=== PATIENT | male | born 1950 | race Caucasian/White ===

== ENCOUNTER 2023-06-30 11:48 | Outpatient (CLI) | payer MEDICARE, SELFPAY ==
[2023-06-30 13:10] LABS: Urine Cotinine NEGATIVE
[2023-06-30 13:11] LABS: Albumin Level 4.4 g/dL (3.5-5.1); Anion Gap 6 mmol/L (8-16); Basophils Percent Auto 0.2 % (0.2-1.2); Blood Urea Nitrogen 27 mg/dL (9-20); Calcium 9.2 mg/dL (8.4-10.2); Carbon Dioxide 31 mmol/L (22-30); Chloride 103 mmol/L (98-107); Eosinophils Absolute Auto 0.1 K/mm3 (0-0.3); Eosinophils Percent Auto 2.9 % (0-4.4); Estimated Glomerular Filt Rate > 60; Glucose 80 mg/dL (65-110); Hematocrit 46.4 % (42.0-52.0); Hemoglobin 14.9 g/dL (14.0-18.0); Immature Granulocyte Absolute 0.01 K/mm3 (0.00-0.031); Immature Granulocyte Percent A 0.2 % (0-0.5); Lymphocytes Absolute Auto 1.28 K/mm3 (0.9-3.2); Lymphocytes Percent Auto 28.9 % (18.3-44.2); Mean Corpuscular HGB Conc 32.1 g/dl (32-36); Mean Corpuscular Hemoglobin 30.6 pg (26-34); Mean Corpuscular Volume 95.3 fl (80-100); Mean Platelet Volume 9.9 fl (7.4-10.4); Monocytes Absolute Auto 0.4 K/mm3 (0.1-0.6); Monocytes Percent Auto 8.1 % (2.6-8.5); Neutrophils Absolute Auto 2.6 K/mm3 (1.3-6.7); Neutrophils Percent Auto 59.7 % (45.5-73.1); Platelet Count Result 208 k/mm3 (150-375); Potassium 4.6 mmol/L (3.4-5.0); Red Blood Count 4.87 M/mm3 (4.6-6.20); Red Cell Distribution Width 13.7 % (11.5-14.5); Sodium 140 mmol/L (137-145); White Blood Count 4.4 K/mm3 (4.5-10.0)
[2023-06-30 13:12] LABS: Hemoglobin A1C 5.3 % (<5.7)
== END 2023-06-30 11:49 | disposition home or self-care (01) ==
LOC: ANHSURGERY 12:00
PROVIDERS: PCP Family Medicine; Visit Provider Orthopaedic Surgery
DX: M16.11 Unilateral primary osteoarthritis, right hip (principal); Z01.818 Encounter for other preprocedural examination
CPT/HCPCS: 80048; 80307; 82040; 83036; 85025; 87081

== ENCOUNTER 2023-07-14 01:42 | Day surgery (SDC) | payer MEDICARE, SELFPAY ==
[2023-06-30 12:21] VITALS: BMI 28.3
--- NOTE | 2023-06-30 12:24 | PC.NURSE ---
Report to the Outpatient Waiting Room, entrance under the green pavilion located off [facility], at time _0600 on date _07/14/23 . Planned Procedure Time: _0730 . Time changes happen often and if your time is changed the preop area will call you the afternoon before. - You and your visitor will be asked to self-screen and do not enter if you have any COVID symptoms. - A mask is optional within the hospital at this time. Patients may have clear liquids (water, carbonated beverages, clear teas, apple juice) until 3 hours prior to surgery(4:30 AM ) with a maximum of 20 ounces. - No food from midnight until time of surgery - Infants may have breast milk until 4 hours before surgery, infant formula 6 hours prior to surgery. - Children will be allowed to drink immediately following surgery. If applicable, please bring a bottle or sippy cup to assist with drinking. Juice, water, soda, and popsicles are readily available. For infants on formula, please bring formula the day of surgery. Pacifiers are allowed. Take the following medications with a SIP of water the morning of surgery: ___EYE DROP DO NOT STOP ANY OF YOUR OTHER PRESCRIPTION MEDICATIONS PRIOR TO SURGERY ?EXCEPT THE FOLLOWING Medications to discontinue per physician ____HOLD ASPIRIN AND IBUPROFEN 7 DAYS PRE OP PT STATES PER DR SINGH LAST DOSE 07/06/23 MAY TAKE TYLENOL IF NEEDED FOR PAIN HOLD ALL VITAMINS AND SUPPLEMENTS 3 DAYS PRE OP .LAST DOSE 07/10/23 Please no make-up, nail moldovan, hairspray, perfume, deodorant, or body powder the day of surgery. No jewelry (including any body piercings) or valuables the day of surgery, leave them at home. Please take a shower or bath the night before, or the morning of, surgery with an antibacterial soap. Wear comfortable, loose fitting clothing. Children are encouraged to wear pajamas. - Jewelry must be removed prior to entering the operating room. Rings and piercings that are not removed may be cut off. - The hospital will not accept responsibility for valuables. - Please leave all valuables, including medications, at home the day of surgery. If you are going home after surgery, a licensed professional driver must drive you home. - NO public transportation without another adult if you receive anesthesia. - We recommend that an adult stay with you for 24 hours following discharge. - We also recommend that you do not drive, make important decision, drink alcoholic beverages, or take any drugs that were not prescribed by your health care provider for at least 24 hours after your discharge time Follow any additional instructions given to you from your surgeon. If you or anyone in your household have experienced Covid symptoms in the past week, please notify your surgeon or the nurse liaison at the phone number below for possible testing. VERBAL AND WRITTEN instructions given to __PATIENT and asked if any additional questions and then verbalized understanding. Patient advised to call surgeon office or pre surgery nurse liaison [phone] if any additional questions.
[2023-06-30 12:45] VITALS: BP 156/80; PULSE 55; RESP 18; TEMP 36.7; O2SAT 98
--- NOTE | 2023-07-11 11:32 | PM.IMHP ---
H&P: HPI History of Present Illness Date/Time: 07/11/23 11:32 Chief Complaint: Right hip DJD right Narrative: 72-year-old male patient of Dr. Delcid who presents today for a right anterior total hip arthroplasty. Patient has been having pain in both of his hips for almost a year. Right is worse than left with regard to the symptoms at this point. He has advanced osteoarthritis of the right hip and severe osteoarthritis in the left. He has been taking tijb-kif-fubwbfc anti-inflammatories for the hip as well as he has colon to rule physical therapy. He has not had significant improvement of his symptoms. He has pain on a daily basis particularly in the anterior lateral aspect of the hip. Pain is limiting his activities. At this point he feels he is ready to proceed with total hip arthroplasty rather than continue nonsurgical treatment. Review of Systems Review of Systems: All systems reviewed & are unremarkable except as noted in HPI and below PMFSH Social History Social History Smoking status: Never smoker Additional smoking assessment comments: DENIES ANY FORM OF TOBACCO USE Alcohol intake: current Drinks per week: 5 Living arrangements: with family Spiritual care concerns: No Meds Home Medications and Allergies Home Medications Medication Instructions Recorded Confirmed Type aspirin 81 mg tablet,delayed 81 mg PO DAILY 06/30/23 06/30/23 History release (Adult Low Dose Aspirin) brimonidine 0.2 %-timolol 0.5 % 1 drp EACH EYE QAM 06/30/23 06/30/23 History eye drops (Combigan) glucosamine sulf dipot 1 cap PO DAILY 06/30/23 06/30/23 History chlr,msm,chond 550 mg-C 30 mg-kinjal 1 mg capsule (Glucosamine Chondroitin) hydrochlorothiazide 25 mg tablet 25 mg PO DAILY 06/30/23 06/30/23 History ibuprofen 400 mg tablet 400 mg PO Q6H PRN Pain 06/30/23 06/30/23 History lisinopril 40 mg tablet 40 mg PO DAILY 06/30/23 06/30/23 History fesxilxm-bcskzzyg-srgja acid 400 1 tablet PO DAILY 06/30/23 06/30/23 History mcg-vit K 20 mcg-lycop 300 mcg tablet rosuvastatin 10 mg tablet 10 mg PO DAILY 06/30/23 06/30/23 History Allergies Allergy/AdvReac Type Severity Reaction Status Date / Time Sulfa (Sulfonamide Allergy Unknown Unknown Unverified 06/30/23 12:08 Antibiotics) hydrocodone [From Vicodin] AdvReac Nausea and Verified 06/30/23 12:34 Vomiting Exam Narrative: 72-year-old male alert and pleasant. He is 6 ft tall and 206 lb. He walks with a very stiff gait. His right hip flexes to 85?, and he is fixed at approximately 25? of external rotation. Stinchfield maneuver causes him moderate pain in the lateral hip. His normal ducts and strength in the hip. 2+ posterior artery pulse is palpable. No edema in lower extremities. Skin around the hip and groin area are normal. Resp: Auscultation: clear to auscultation bilaterally Cardio: Rate: regular rate Rhythm: regular rhythm Assessment and Plan Assessment and plan (1) Hip arthritis: Code(s): M16.10 - Unilateral primary osteoarthritis, unspecified hip Status: Acute Plan 72-year-old male who has severe osteoarthritis of left hip with continued symptoms. At this point he would like to proceed with total elbow arthroplasty. Surgical procedure as well as the risks and complications were discussed in detail and all questions were answered and we will proceed. He will avoid his ibuprofen and any other aspirin products 1 week prior to surgery. His nasal swab was negative. Chem panel was all within normal limits creatinine is 0.80. Hemoglobin is 14.9 and platelets are 2008. He will see his primary care doctor for presurgical clearance he has seen cardiology Dr Bahena and has been evaluated and cleared without additional testing.
[2023-07-14] VITALS (16 sets, daily range): BP systolic 108–158; BP diastolic 52–86; PULSE 44–88; RESP 12–18; TEMP 35.6–36.7; O2SAT 96–100
--- NOTE | ~2023-07-14 | XR_ITS ---
EXAMINATION: XR surgery orthopedic DATE: 07/14/2023 10:38 INDICATION: Total right hip arthroplasty. TECHNIQUE: A single intraoperative fluoroscopic view of right hip was obtained. I was not present. Fl uoroscopy exposure time was 40 seconds. COMPARISON: Pelvis and right hip radiographs 07/14/23 FINDINGS: There is a total right hip arthroplasty in near-anatomic alignment. No fracture. IMPRESSION: 1. Total right hip arthroplasty in near-anatomic alignment. Reviewed, dictated and finalized at location A. OFFSET PRESS FEEDER
--- NOTE | ~2023-07-14 | XR_ITS ---
EXAMINATION: XR hip RT 1V w AP pelvis DATE: 07/14/2023 10:52 INDICATION: Total right hip arthroplasty. Postop. TECHNIQUE: An anteroposterior view of the pelvis and single view of right hip were obtained. COMPARISON: None. FINDINGS: There is a total right hip arthroplasty in near-anatomic alignment. No fracture. There is s evere left hip osteoarthritis. There is gas in the soft tissues around right hip, consistent with rec ent surgery. IMPRESSION: 1. Total right hip arthroplasty in near-anatomic alignment. 2. Severe left hip osteoarthritis. Reviewed, dictated and finalized at location A. 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
[2023-07-14] MEDS: LACTATED RINGERS 1,000 ML 30 ML IV CONT ×2 (06:30→10:56)
[2023-07-14] MEDS: ACETAMINOPHEN 500 MG TABLET 1000 MG PO (06:30)
[2023-07-14] MEDS: VANCOMYCIN 1,500 MG/NS 500 ML 1,500 MG/500 ML BAG 250 MG IVPB (06:30)
[2023-07-14] MEDS: TRANEXAMIC ACID 1,000MG/ISO100 1,000 MG/100 ML BAG 200 MG IVPB (07:00)
--- NOTE | 2023-07-14 07:15 | WPDHPUPDATE1 ---
History and Physical Update Update Date/Time: 07/14/23 07:15 History and Physical has been reviewed, including an updated exam of the patient. There are NO changes in the patient's condition. Risks, benefits, and alternatives have been discussed and questions answered. Patient agrees to proceed with procedure.
[2023-07-14] MEDS: ceFAZolin 2 GM/D5W 50 ML 2 GM/50 ML BAG IVPB (07:52)
[2023-07-14] MEDS: ceFAZolin SODIUM 1 GM VIAL 3 GM (09:08)
[2023-07-14] MEDS: ceFAZolin SODIUM 1 GM VIAL 2 GM IV PUSH (10:15)
[2023-07-14] MEDS: TRANEXAMIC ACID 1,000 MG/10 ML AMPUL 1000 MG IV PUSH (10:19)
--- NOTE | 2023-07-14 10:35 | W.PM.PROC2 ---
Procedure Note - Detailed Date of Procedure 07/14/23 Pre-op Diagnosis right hip oa Post-op Diagnosis Same Procedure Performed Direct anterior approach right total hip arthroplasty Surgeon Sebastian Larsen MD Correspondence Specialist Iveth Anesthesia General Description of Procedure Patient was brought to the operating room and general anesthesia was administered. He received 2 g of Ancef weight based vancomycin 1 g of TXA preoperatively. Lazaro catheter was placed. The feet were padded and boots applied he was transferred to the [facility] [place] table. SCDs applied to the calves and running. The right hip prepped draped usual fashion. A 10 cm longitudinal incision was made starting 3 cm lateral to the ASIS. Dissection was carried down to the fascia over the tensor fascia paulie which was longitudinally incised elevated this fascia over the anterior 1/2 the TFL muscle. Interval between TFL and rectus femoris developed. Crossing branches of ascending lateral femoral circumflex vessels were ligated with suture divided. Retractor was placed anteromedial to the capsule. The hip abducted internally rotated the gluteus minimus elevated off the lateral capsule. Inverted T capsulotomy was performed. Femoral neck osteotomy was made according to preoperative templating. Femoral head measured 53 mm in diameter and was mushroom shaped markedly hypertrophic with complete cartilage loss centrally. Acetabulum was exposed and was also severely arthritic. Residual posterior superior labrum and posterior labrum excised. We medialized with the 46 Reamer exposing the foveal fat pad which was excised we medialized the medial wall. Under fluoroscopic guidance we reamed up to a size 53 which gave contact at the equator both the anterior and posterior tran. We lightly reamed with the 54 Reamer and the 54 trial was snug. We impacted the 54 pinnacle cup which seated fully with a tight fit in the single screw placed in the ilium 36 inner diameter neutral liner fully seated and additional anterior and inferior osteophytes were removed this time. Superolateral osteophyte was also debrided. The femur was broached up to a size 8 and we trialed with the-2 high offset neck-2 head and this gave leg lengths that matched our preoperative plan and appropriate soft tissue tension and stability. We do not have to recess the conjoined tendon. We calcar planed and found that we could move the stem went up a size 9 which also had a little bit of play and went up to a size 10 which we countersunk 2 mm below the calcar planed level and this was a tight fit with no play. We trialed again with a -2 high offset and this gave the equivalent leg lengths and soft tissue tension. The size 10 high offset Actis stem was impacted and fully seated after we carefully prepared the calcar and stem came to rest properly on the calcar no cracks in the proximal femur were seen. We trialed again with a -2 which was appropriate the -2 stainless steel head was impacted on the clean and dried trunnion after thorough irrigation of the wound. The hip was reduced stability reconfirmed. Fluoroscopic final x-ray was obtained capsular flaps approximated superiorly with 2. Vicryl local anesthetic cocktail injected the soft tissues. The wound was dry. The fascia was closed with running 1. Vicryl drain the subcu skin closed with 2 subcutaneous Vicryl and glue. EBL was 600 cc and 250 cc of Cell Saver blood was given back to the purse patient at the end the procedure. He received 2 additional g Ancef 1 g of TXA. There were no complications. He was transferred postop recovery room stable condition. I felt the bone quality was such that we could allow and be weight-bearing as tolerated after surgery. Estimated Blood Loss 600 Drains Yes Pathology None sent Condition Stable Disposition PACU
--- NOTE | 2023-07-14 10:38 | SUR.OPER ---
cell saver: gave back 250 mls patient's own blood
[2023-07-14] MEDS: KETOROLAC 15 MG/ML VIAL (*BKC) IV PUSH ×2 (10:45→17:11)
--- NOTE | 2023-07-14 11:03 | PM.OP ---
Procedure Note - Brief Procedure Note - Brief Date of procedure: 07/14/23 right hip oa Procedure performed: Right anterior total hip arthroplasty Surgeon: BOYD Lacy Description of procedure: 72-year-old male who underwent right anterior total hip arthroplasty on 07/14. I was involved in the procedure including positioning the patient on the OR table and 1st assisting through the time of surgery. Total time spent was 3-1/2 hours
--- NOTE | 2023-07-14 12:38 | ADMGEN ---
This patient, Rob Spring, was admitted to [facility] Surg Room 329-01. Patient/family oriented to hospital policies and general routines including ID bracelet, bed and alarms, visiting hours, pain management, procedures, bathroom and other care routines, personal items, smoking policy, room service/diet, and visiting hours. Information on how to activate the Rapid Response Team has been discussed. Patient/Family are encouraged to report perceived risks to care and to ask questions if they do not understand what they are told or what they should do.
[2023-07-14] MEDS: ONDANSETRON INJ 4 MG/2 ML VIAL IV PUSH ×3 (12:54→21:06)
[2023-07-14] MEDS: oxyCODONE HCL (*CRX) 2.5 MG TAB IR PO ×3 (13:50→21:06)
[2023-07-14] MEDS: ACETAMINOPHEN 325 MG TABLET 650 MG PO ×3 (14:30→22:05)
[2023-07-14] MEDS: ceFAZolin 1 GM/NS 50 ML 1 GM/50 ML BAG IVPB (17:09)
[2023-07-14] MEDS: SENNA/DOCUSATE SODIUM TABLET 2 TAB PO (17:11)
--- NOTE | 2023-07-14 18:50 | PM.IMHP ---
H&P: HPI History of Present Illness Date/Time: 07/14/23 18:50 [facility] Social History Social History Smoking status: Never smoker Additional smoking assessment comments: DENIES ANY FORM OF TOBACCO USE Alcohol intake: never Drinks per week: 5 Substance use: never Substance use type: does not use Do You Feel Safe in your Home?: Yes Lack of Transportation: No Lack of Food: Never True Current Housing: I Have Housing Concerned About Future Housing: No Difficulty Paying Gas/Electric Bills: No Difficulty Paying for Meds: No Currently Unemployed: No Education: Don't Know Difficulty w/ Childcare or Family Care: No Living arrangements: with family Spiritual care concerns: No Meds Home Medications and Allergies Home Medications Medication Instructions Recorded Confirmed Type aspirin 81 mg tablet,delayed 81 mg PO DAILY 06/30/23 06/30/23 History release (Adult Low Dose Aspirin) brimonidine 0.2 %-timolol 0.5 % 1 drp EACH EYE QAM 06/30/23 06/30/23 History eye drops (Combigan) glucosamine sulf dipot 1 cap PO DAILY 06/30/23 06/30/23 History chlr,msm,chond 550 mg-C 30 mg-kinjal 1 mg capsule (Glucosamine Chondroitin) hydrochlorothiazide 25 mg tablet 25 mg PO DAILY 06/30/23 06/30/23 History ibuprofen 400 mg tablet 400 mg PO Q6H PRN Pain 06/30/23 06/30/23 History lisinopril 40 mg tablet 40 mg PO DAILY 06/30/23 06/30/23 History yvxxzqdy-naqnjspl-emflz acid 400 1 tablet PO DAILY 06/30/23 06/30/23 History mcg-vit K 20 mcg-lycop 300 mcg tablet rosuvastatin 10 mg tablet 10 mg PO DAILY 06/30/23 06/30/23 History Allergies Allergy/AdvReac Type Severity Reaction Status Date / Time Sulfa (Sulfonamide Allergy Unknown Unknown Verified 07/14/23 12:41 Antibiotics) hydrocodone [From Vicodin] AdvReac Nausea and Verified 07/14/23 12:41 Vomiting Vital Signs Vital Signs - 24 hr 07/14/23 06:44 07/14/23 10:56 07/14/23 11:10 Temperature 36.2 C L 36.6 C Pulse Rate 82 78 54 L Respiratory Rate 18 12 13 Blood Pressure 124/71 108/57 L 117/52 L Pulse Oximetry 100 100 100 Oxygen Delivery Room Air Simple Face Mask Simple Face Mask Oxygen Flow Rate 8 8 07/14/23 11:25 07/14/23 11:40 07/14/23 11:55 Temperature Pulse Rate 46 L 48 L 50 L Respiratory Rate 14 12 12 Blood Pressure 131/60 139/68 138/69 Pulse Oximetry 100 98 99 Oxygen Delivery Simple Face Mask Room Air Room Air Oxygen Flow Rate 8 07/14/23 12:10 07/14/23 12:20 07/14/23 13:21 Temperature Pulse Rate 45 L 48 L 48 L Respiratory Rate 18 12 12 Blood Pressure 129/64 130/71 Pulse Oximetry 99 97 97 Oxygen Delivery Room Air Room Air Room Air Oxygen Flow Rate 07/14/23 12:22 07/14/23 12:50 07/14/23 13:20 Temperature 35.6 C L 35.6 C L 35.6 C L Pulse Rate 44 L 53 L 83 Respiratory Rate 16 16 18 Blood Pressure 134/63 133/71 144/74 H Pulse Oximetry 99 100 99 Oxygen Delivery Oxygen Flow Rate 07/14/23 14:21 07/14/23 14:20 07/14/23 15:42 Temperature 35.8 C L 36.1 C L Pulse Rate 88 61 Respiratory Rate 16 18 Blood Pressure 129/69 158/86 H Pulse Oximetry 98 96 Oxygen Delivery Room Air Oxygen Flow Rate
[2023-07-14] MEDS: VANCOMYCIN 1,000 MG/NS 250 ML 1,000 MG/250 ML BAG 250 MG IVPB (19:54)
[2023-07-14] MEDS: FAMOTIDINE 20 MG TABLET PO (21:06)
--- NOTE | 2023-07-14 22:09 | PM.IMCN ---
Assessment and Plan Assessment and plan (1) Degenerative joint disease (DJD) of hip: Code(s): M16.9 - Osteoarthritis of hip, unspecified Status: Acute Assessment and Plan: Patient admitted status post right anterior total hip arthroplasty by Dr. Olguin today. (2) Hypertension: Code(s): I10 - Essential (primary) hypertension Status: Acute Assessment and Plan: Stable, continue home medications (3) Hyperlipidemia: Code(s): E78.5 - Hyperlipidemia, unspecified Status: Acute Assessment and Plan: Continue home medications Plan Hospitalist service is happy to consult will be available for medical concerns and overnight calls. Morning labs have been ordered. IV fluids overnight as patient has not yet urinated after surgery (07/14 at 2345) Compazine for second-line antiemetic if necessary HPI Date of Consult Consult date: 07/14/23 Requesting Physician: Sebastian Larsen MD Primary Care Provider: Rufus Delcid, Mai Consult Narrative Reason for consult: Medical management Narrative: Rob Spring is a 72 year old male with a history of hypertension hyperlipidemia and degenerative joint disease who underwent right anterior total hip arthroplasty today and the hospitalist service was asked to consult for medical management. Patient does not smoke, minimal alcohol use. Patient reports that he vomited several times after surgery, may be related to anesthesia or narcotic pain medication. Patient reports he has not urinated since surgery. We will start IV fluids infusion overnight. Patient reports he is drinking water ok but admits that he may be dehydrated from all the vomiting earlier. Review of Systems Review of Systems: All systems reviewed & are unremarkable except as noted in HPI and below [facility] Past Medical History Medical History (Updated 07/14/23 @ 22:15 by Ayush Mendoza APRN) Degenerative joint disease (DJD) of hip Hip arthritis Hyperlipidemia Hypertension Social History Social History Smoking status: Never smoker Additional smoking assessment comments: DENIES ANY FORM OF TOBACCO USE Alcohol intake: never Drinks per week: 5 Substance use: never Substance use type: does not use Do You Feel Safe in your Home?: Yes Lack of Transportation: No Lack of Food: Never True Current Housing: I Have Housing Concerned About Future Housing: No Difficulty Paying Gas/Electric Bills: No Difficulty Paying for Meds: No Currently Unemployed: No Education: Don't Know Difficulty w/ Childcare or Family Care: No Living arrangements: with family Spiritual care concerns: No Meds Home Medications and Allergies Home Medications Medication Instructions Recorded Confirmed Type aspirin 81 mg tablet,delayed 81 mg PO DAILY 06/30/23 06/30/23 History release (Adult Low Dose Aspirin) brimonidine 0.2 %-timolol 0.5 % 1 drp EACH EYE QAM 06/30/23 06/30/23 History eye drops (Combigan) glucosamine sulf dipot 1 cap PO DAILY 06/30/23 06/30/23 History chlr,msm,chond 550 mg-C 30 mg-kinjal 1 mg capsule (Glucosamine Chondroitin) hydrochlorothiazide 25 mg tablet 25 mg PO DAILY 06/30/23 06/30/23 History ibuprofen 400 mg tablet 400 mg PO Q6H PRN Pain 06/30/23 06/30/23 History lisinopril 40 mg tablet 40 mg PO DAILY 06/30/23 06/30/23 History tmvfeorn-xvjwiook-ljcyj acid 400 1 tablet PO DAILY 06/30/23 06/30/23 History mcg-vit K 20 mcg-lycop 300 mcg tablet rosuvastatin 10 mg tablet 10 mg PO DAILY 06/30/23 06/30/23 History Allergies Allergy/AdvReac Type Severity Reaction Status Date / Time Sulfa (Sulfonamide Allergy Unknown Unknown Verified 07/14/23 12:41 Antibiotics) hydrocodone [From Vicodin] AdvReac Nausea and Verified 07/14/23 12:41 Vomiting Vital Signs Vital Signs - 24 hr 07/14/23 06:44 07/14/23 10:56 07/14/23 11:10 Temperature 36.2 C L 36.6 C Pulse Rate 82 78 54 L Respiratory Rate 18 1
[2023-07-15] MEDS: KETOROLAC 15 MG/ML VIAL (*BKC) IV PUSH (00:18)
[2023-07-15] MEDS: ceFAZolin 1 GM/NS 50 ML 1 GM/50 ML BAG IVPB ×2 (00:19→09:18)
[2023-07-15] MEDS: SODIUM CHLORIDE 0.9% IV 1,000 ML 100 ML IV CONT (00:20)
[2023-07-15] MEDS: oxyCODONE HCL (*CRX) 2.5 MG TAB IR PO ×4 (00:59→13:33)
[2023-07-15] MEDS: ACETAMINOPHEN 325 MG TABLET 650 MG PO ×3 (02:03→13:33)
[2023-07-15 04:07] VITALS: BP 115/63; PULSE 82; RESP 17; TEMP 36.5; O2SAT 97
[2023-07-15] MEDS: ONDANSETRON INJ 4 MG/2 ML VIAL IV PUSH ×2 (05:46→09:27)
[2023-07-15 06:41] LABS: Basophils Percent Auto 0.1 % (0.2-1.2); Eosinophils Percent Auto 0.1 % (0-4.4); Hematocrit 35.9 % (42.0-52.0); Hemoglobin 11.8 g/dL (14.0-18.0); Immature Granulocyte Absolute 0.05 K/mm3 (0.00-0.031); Immature Granulocyte Percent A 0.5 % (0-0.5); Lymphocytes Absolute Auto 0.76 K/mm3 (0.9-3.2); Lymphocytes Percent Auto 7.3 % (18.3-44.2); Mean Corpuscular HGB Conc 32.9 g/dl (32-36); Mean Corpuscular Hemoglobin 30.6 pg (26-34); Mean Corpuscular Volume 93.2 fl (80-100); Mean Platelet Volume 10.3 fl (7.4-10.4); Monocytes Absolute Auto 0.6 K/mm3 (0.1-0.6); Monocytes Percent Auto 5.5 % (2.6-8.5); Neutrophils Percent Auto 86.5 % (45.5-73.1); Platelet Count Result 177 k/mm3 (150-375); Red Blood Count 3.85 M/mm3 (4.6-6.20); Red Cell Distribution Width 13.7 % (11.5-14.5); White Blood Count 10.4 K/mm3 (4.5-10.0)
[2023-07-15] MEDS: VANCOMYCIN 1,000 MG/NS 250 ML 1,000 MG/250 ML BAG 250 MG IVPB (06:41)
[2023-07-15 07:36] LABS: Anion Gap 8 mmol/L (8-16); Blood Urea Nitrogen 35 mg/dL (9-20); Calcium 8.7 mg/dL (8.4-10.2); Carbon Dioxide 20 mmol/L (22-30); Chloride 106 mmol/L (98-107); Estimated CRCL calculation 89 ml/min; Estimated Glomerular Filt Rate > 60; Glucose 119 mg/dL (65-110); Potassium 4.3 mmol/L (3.4-5.0); Sodium 134 mmol/L (137-145)
[2023-07-15 07:53] VITALS: BP 122/64; PULSE 62; RESP 18; TEMP 36.2; O2SAT 99
[2023-07-15] MEDS: polyethylene glycoL 3350 17 GM POWD.PACK PO (09:18)
[2023-07-15] MEDS: lisinopriL 20 MG TABLET 40 MG PO (09:18)
[2023-07-15] MEDS: SENNA/DOCUSATE SODIUM TABLET 2 TAB PO (09:19)
[2023-07-15] MEDS: APIXABAN 2.5 MG TABLET PO (09:19)
[2023-07-15] MEDS: MELOXICAM 7.5 MG TABLET PO (09:19)
[2023-07-15] MEDS: FAMOTIDINE 20 MG TABLET PO (09:19)
[2023-07-15] MEDS: ROSUVASTATIN 10 MG TABLET PO (09:19)
[2023-07-15] MEDS: hydroCHLOROthiazide 25 MG TABLET PO (09:31)
[2023-07-15] MEDS: CEFDINIR 300 MG CAPSULE PO (09:31)
[2023-07-15] MEDS: BRIMONIDINE TARTRATE 0.2% OP SOLN 5 ML BTL 1 DROP EACH EYE (09:31)
[2023-07-15] MEDS: ASPIRIN 81 MG ENTERIC TABLET PO (09:31)
[2023-07-15] MEDS: TIMOLOL MALEATE 0.5% OP SOLN 5 ML BOTTLE 1 DROP EACH EYE (09:32)
[2023-07-15 11:11] VITALS: O2SAT 93
[2023-07-15 12:00] VITALS: BP 123/61; PULSE 62; RESP 16; TEMP 36.2; O2SAT 98
--- NOTE | 2023-07-15 12:22 | PM.PNORT ---
Progress Note: A&P Assessment and Plan (1) Status post right hip replacement: Code(s): Z96.641 - Presence of right artificial hip joint Status: Acute Plan Patient doing well postop day 1 status post right total hip arthroplasty. Patient is ready for discharge to home see discharge instructions the patient voiced understanding and agrees to the above plan. Subjective Subjective Date/Time Seen: 07/15/23 12:22 Interval history: Patient is seen postop day 1 status post total hip arthroplasty doing well pain is well controlled eating and sleeping well. No complaints. Today at bedside we went over the instructions for postop hip care he is instructed to be on his back with his leg elevated above the heart throughout the day except to get up and move around at least every hour for ambulation. He can sit in a chair for 30 minutes for meals. Change dressing daily he may shower. Follow-up 2 weeks postop at our office. Call the office immediately for any problems difficulties or questions. He can resume his home medications and start the new medications that are being prescribed we went over these today in detail as well. He voiced understanding he is ready for discharge to home. Review of Systems Review of Systems: Ten point review of systems negative Exam Narrative: Vital signs stable afebrile neurovascular patient is intact wound clean and dry calves benign able to ambulate and therapy well pain is well controlled alert oriented x3. Normal mood and affect. Objective Data Vital Signs Vital Signs: Vital Signs - 24 hr 07/14/23 13:21 07/14/23 12:50 07/14/23 13:20 Temperature 35.6 C L 35.6 C L Pulse Rate 48 L 53 L 83 Respiratory Rate 12 16 18 Blood Pressure 133/71 144/74 H Pulse Oximetry 97 100 99 Oxygen Delivery Room Air 07/14/23 14:21 07/14/23 14:20 07/14/23 15:42 Temperature 35.8 C L 36.1 C L Pulse Rate 88 61 Respiratory Rate 16 18 Blood Pressure 129/69 158/86 H Pulse Oximetry 98 96 Oxygen Delivery Room Air 07/14/23 20:16 07/14/23 23:29 07/15/23 04:07 Temperature 36.2 C L 36.7 C 36.5 C Pulse Rate 60 79 82 Respiratory Rate 15 16 17 Blood Pressure 148/75 H 119/68 115/63 Pulse Oximetry 98 97 97 Oxygen Delivery 07/15/23 07:53 07/15/23 08:00 07/15/23 11:11 Temperature 36.2 C L Pulse Rate 62 Respiratory Rate 18 Blood Pressure 122/64 Pulse Oximetry 99 93 Oxygen Delivery Room Air Room Air 07/15/23 12:00 Temperature 36.2 C L Pulse Rate 62 Respiratory Rate 16 Blood Pressure 123/61 Pulse Oximetry 98 Oxygen Delivery Intake/Output Intake/Output: Intake & Output 07/12/23 07/13/23 07/14/23 07/15/23 23:59 23:59 23:59 23:59 Intake Total 1290 530 Balance 1290 530 Meds/Results Medications: Active Medications Generic Name Dose Route Start Last Admin Trade Name Freq PRN Reason Stop Dose Admin Acetaminophen 650 mg 07/14/23 14:00 07/15/23 05:46 Acetaminophen 325 Mg Tablet PO 650 mg Q4H ASHLEY Administration Al Hydrox/Mg Hydrox/Simethicone 30 ml 07/14/23 12:22 Mag Hydrox/Al Hydrox/Simeth 30 Ml Udc PO Q6H PRN Indigestion Apixaban 2.5 mg 07/15/23 09:00 07/15/23 09:19 Apixaban 2.5 Mg Tablet PO 2.5 mg Q12HR ASHLEY Administration Aspirin 81 mg 07/15/23 09:00 07/15/23 09:31 Aspirin 81 Mg Enteric Tablet PO 81 mg DAILY ASHLEY Administration Brimonidine Tartrate 1 drop 07/15/23 09:00 07/15/23 09:31 Brimonidine Tartrate 0.2% Op Soln 5 Ml Btl EACH EYE 1 drop QAM ASHLEY Administration Cefdinir 300 mg 07/15/23 09:00 07/15/23 09:31 Cefdinir 300 Mg Capsule PO 300 mg Q12HR ASHLEY Administration Famotidine 20 mg 07/14/23 21:00 07/15/23 09:19 Famotidine 20 Mg Tablet PO 20 mg Q12HR ASHLEY Administration Hydrochlorothiazide 25 mg 07/15/23 09:00 07/15/23 09:31 Hydrochlorothiazide 25 Mg Tablet PO 25 mg DAILY ASHLEY Administration Lisinopril 40 mg 07/15/23 09:00 07/15/23 09:18
--- NOTE | 2023-07-15 12:40 | PM.DS ---
DS: Admitting Diagnosis Discharge Date July 15, 2023 Admitting Diagnosis Admitting diagnosis-advanced primary osteoarthritis right hip Discharge diagnosis-same status post right total hip arthroplasty. DS: Summary Hospital Course Hospital Course: The patient was admitted postop status post right total hip arthroplasty on July 14, 2023. Postop day 1 the patient was doing no complaints alert oriented x3. Normal mood and affect. Vital signs are stable he was afebrile neurovascularly intact wound clean and dry calves benign up ambulating independently with a walker pain was well controlled no postoperative complications noted. At bedside today we went over the postoperative instructions for total hip arthroplasty in detail the patient voiced understanding and agreed with the above plan. Instructions are as follows. LORAINE SINGH M.D [facility], [place] [address] [address] POST-OPERATIVE DISCHARGE INSTRUCTIONS ANTERIOR TOTAL HIP ARTHROPLASTY 1. Move toes/feet up and down every hour while awake. 2. Be up walking every hour while awake. 3. Use walker certifier if instructed to use walker certifier.When you are allowed to use the cane, use the cane in the opposite hand. 4. When resting, do not rest in the chair. Rather, lie on your back, with back flat, and the leg elevated above heart to minimize swelling. You may put a pillow under your head. Do not rest in a chair. Resting in the chair results in swelling in the leg. Significant swelling could indicate a blood clot and if this occurs, call the office (or go to the ER) to have a venous ultrasound performed. Its ok to sit in the chair to eat and use the toilet and to receive a guest but sitting in a chair will cause your leg to swell. so try to minimize sitting in a chair. 5. Wound Care: Apply a folded 4x4 sponge to incision and hold with crossing strips of 1 inch Transpore tape. 6. Follow weight bearing status as instructed: 7. May shower. Remove dressing before shower and reapply dressing after shower. 8. Patient was discharged home general diet and good condition Time Spent with Patient Time attestation: Total time spent providing and/or coordinating discharge services: Exam Narrative: Vital signs stable afebrile neurovascular intact with clean and dry calves benign alert oriented x3. Normal mood and affect. Ambulating independently pain well controlled. DS: Data Data Completed and Pending Labs on day of discharge: Labs from last 24 hours 07/15/23 07/15/23 05:55 05:52 WBC 10.4 H RBC 3.85 L Hgb 11.8 L D Hct 35.9 L MCV 93.2 MCH 30.6 MCHC 32.9 RDW 13.7 Plt Count 177 MPV 10.3 Immature Gran % (Auto) 0.5 Neut % (Auto) 86.5 H Lymph % (Auto) 7.3 L [place] % (Auto) 5.5 Eos % (Auto) 0.1 Baso % (Auto) 0.1 L Lymph # (Auto) 0.76 L [place] # (Auto) 0.6 Eos # (Auto) 0.0 Baso # (Auto) 0.0 Abs Immat Gran (auto) 0.05 H Absolute Neuts (auto) 9.0 H Absolute Nucleated RBC 0.0 Nucleated RBC % 0.0 Sodium 134 L Potassium 4.3 Chloride 106 Carbon Dioxide 20 L Anion Gap 8 BUN 35 H Creatinine 0.70 Estim Creat Clear Calc 89 Estimated GFR > 60 Glucose 119 H Calcium 8.7 Procedures/Treatments: Right total hip arthroplasty Discharge Plan Discharge Patient Disposition: Home, Self-Care Discharge Instructions: LORAINE SINGH M.D [facility], [address] [address] POST-OPERATIVE DISCHARGE INSTRUCTIONS ANTERIOR TOTAL HIP ARTHROPLASTY 1. Move toes/feet up and down every hour while awake. 2. Be up walking every hour while awake. 3. Use walker certifier if instructed to use walker certifier.When you are allowed to use the cane, use the cane in the opposite hand. 4. When resting, do not rest in the chair. Rather, lie on your back, with back flat, and
--- NOTE | 2023-07-15 14:12 | P.PNAN_ITS ---
Anes - Prog Note Post-Op Date/Time: 07/15/23 14:12 Cardiovascular status: normal Respiratory status: normal Airway patency: baseline Mental status: baseline Post-Op hydration status: normal Vital Signs: Last Vital Signs Temp 36.2 C L 07/15/23 12:00 Pulse 62 07/15/23 12:00 Resp 16 07/15/23 12:00 BP 123/61 07/15/23 12:00 Pulse Ox 98 07/15/23 12:00 O2 Del Method Room Air 07/15/23 11:11 O2 Flow Rate 8 07/14/23 11:25 Pain Score (VAS): denies pain. I/O: Intake & Output 07/14/23 07/15/23 07/15/23 23:59 07:59 15:59 Intake Total 540 50 480 Balance 540 50 480 Laboratory Tests 07/15/23 05:55 07/15/23 05:52 07/15/23 07/15/23 05:52 05:55 WBC 10.4 H RBC 3.85 L Hgb 11.8 L D Hct 35.9 L MCV 93.2 MCH 30.6 MCHC 32.9 RDW 13.7 Plt Count 177 MPV 10.3 Immature Gran % (Auto) 0.5 Neut % (Auto) 86.5 H Lymph % (Auto) 7.3 L [place] % (Auto) 5.5 Eos % (Auto) 0.1 Baso % (Auto) 0.1 L Lymph # (Auto) 0.76 L [place] # (Auto) 0.6 Eos # (Auto) 0.0 Baso # (Auto) 0.0 Abs Immat Gran (auto) 0.05 H Absolute Neuts (auto) 9.0 H Absolute Nucleated RBC 0.0 Nucleated RBC % 0.0 Sodium 134 L Potassium 4.3 Chloride 106 Carbon Dioxide 20 L Anion Gap 8 BUN 35 H Creatinine 0.70 Estim Creat Clear Calc 89 Estimated GFR > 60 Glucose 119 H Calcium 8.7 Post-procedural complaints: nausea (resolved.) and vomiting (resolved) Patient Feedback: Patient satisfied with anesthetic care.
--- NOTE | 2023-07-15 15:04 | PM.IMPN ---
Progress Note: A&P Assessment and Plan (1) Degenerative joint disease (DJD) of hip: Code(s): M16.9 - Osteoarthritis of hip, unspecified Status: Acute Assessment and Plan: Patient admitted status post right anterior total hip arthroplasty (2) Hypertension: Code(s): I10 - Essential (primary) hypertension Status: Acute Assessment and Plan: Stable, continue home medications (3) Hyperlipidemia: Code(s): E78.5 - Hyperlipidemia, unspecified Status: Acute Assessment and Plan: Continue home medications Subjective Date/time seen: 07/15/23 15:04 Interval history: No overnight events. Doing well pain controlled has not been able to pee since the surgery. Anticipated discharge today. Eventually urinated prior to the discharge today Review of Systems Review of Systems: All systems reviewed & are unremarkable except as noted in HPI and below Exam Narrative: GENERAL: Well-appearing, well-nourished, and in no acute distress. HEAD: Normocephalic, atraumatic. ENT:? Dry membranes moist. CHEST: Clear to auscultation.? No respiratory distress. HEART: Regular rate and rhythm. ? Normal peripheral pulses. ABDOMEN: Soft, nontender, nondistended. EXTREMITIES: Right hip dressing clean dry and intact SKIN: Warm dry normal color NEURO: Alert and oriented x3. PSYCH: Normal mood and affect Objective Data Vital Signs Vital Signs: Vital Signs - 24 hr 07/14/23 15:42 07/14/23 20:16 07/14/23 23:29 Temperature 96.9 F L 97.1 F L 98.0 F Pulse Rate 61 60 79 Respiratory Rate 18 15 16 Blood Pressure 158/86 H 148/75 H 119/68 Pulse Oximetry 96 98 97 Oxygen Delivery 07/15/23 04:07 07/15/23 07:53 07/15/23 08:00 Temperature 97.7 F 97.1 F L Pulse Rate 82 62 Respiratory Rate 17 18 Blood Pressure 115/63 122/64 Pulse Oximetry 97 99 Oxygen Delivery Room Air 07/15/23 11:11 07/15/23 12:00 Temperature 97.1 F L Pulse Rate 62 Respiratory Rate 16 Blood Pressure 123/61 Pulse Oximetry 93 98 Oxygen Delivery Room Air Intake/Output Intake/Output: Intake & Output 01/27/24 01/28/24 01/29/24 01/30/24 23:59 23:59 23:59 23:59 Intake Total 1290 530 Balance 1290 530 Meds/Results Radiology Results: ITS Impressions Intraoperative X-Ray 07/14/23 10:51 IMPRESSION: 1. Total right hip arthroplasty in near-anatomic alignment. Hip/Pelvis X-Ray 07/14/23 11:31 IMPRESSION: 1. Total right hip arthroplasty in near-anatomic alignment. 2. Severe left hip osteoarthritis. Labs Labs: Laboratory Results - last 24 hr 07/15/23 07/15/23 05:52 05:55 WBC 10.4 H RBC 3.85 L Hgb 11.8 L D Hct 35.9 L MCV 93.2 MCH 30.6 MCHC 32.9 RDW 13.7 Plt Count 177 MPV 10.3 Immature Gran % (Auto) 0.5 Neut % (Auto) 86.5 H Lymph % (Auto) 7.3 L [place] % (Auto) 5.5 Eos % (Auto) 0.1 Baso % (Auto) 0.1 L Lymph # (Auto) 0.76 L [place] # (Auto) 0.6 Eos # (Auto) 0.0 Baso # (Auto) 0.0 Abs Immat Gran (auto) 0.05 H Absolute Neuts (auto) 9.0 H Absolute Nucleated RBC 0.0 Nucleated RBC % 0.0 Sodium 134 L Potassium 4.3 Chloride 106 Carbon Dioxide 20 L Anion Gap 8 BUN 35 H Creatinine 0.70 Estim Creat Clear Calc 89 Estimated GFR > 60 Glucose 119 H Calcium 8.7
== END 2023-07-15 14:10 | disposition home or self-care (01) ==
LOC: ANHSURGERY 05:59 → ANH3MEDSUR 12:28
PROVIDERS: Physician Assistant Surgical; PCP Family Medicine; Visit Provider Orthopaedic Surgery
PROC: (CPT 27130; principal; 2023-07-14 07:30)
DX: M16.11 Unilateral primary osteoarthritis, right hip (principal); R11.10 Vomiting, unspecified; I10 Essential (primary) hypertension; E78.5 Hyperlipidemia, unspecified; Z79.82 Long term (current) use of aspirin
CPT/HCPCS: 27130; 36415; 73501; 80048; 80307; 82040; 83036; 85025; 86850; 86900; 86901; 87081; 97110; 97116; 97161; 97165; 97530; 97535; 99199; A9270; C1776; J0171; J0690; J1100; J1170; J1596; J1885; J2250; J2270; J2405; J2704; J2710; J2795; J3010; J3370; J7030; J7120

== ENCOUNTER 2024-04-26 15:36 | Outpatient (CLI) | payer MEDICARE, SELFPAY ==
--- NOTE | ~2024-04-26 | XR_ITS ---
XR hip LT 2V w AP pelvis Ordering provider: Sebastian Larsen MD History: . pain . Comparison: None. FINDINGS: BONES: No acute fracture or dislocation. HIP JOINT SPACES: Right hip arthroplasty. Severe left hip osteoarthritic changes. [place] seen in the left femoral neck. SACROILIAC JOINT SPACES/LUMBAR SPINE: The sacroiliac joint spaces are normal. Mild degenerative nice es of the visualized lower lumbar spine. PUBIC SYMPHYSIS: Pubic symphysitis. SOFT TISSUES: Normal. IMPRESSION: No definite acute osseous abnormality pelvis and left hip. Severe osteoarthritic changes of the left hip. Reviewed, dictated and finalized at location A. IST SPINNER
== END 2024-04-26 15:37 | disposition home or self-care (01) ==
PROVIDERS: PCP Family Medicine; Visit Provider Orthopaedic Surgery
DX: M16.12 Unilateral primary osteoarthritis, left hip (principal)
CPT/HCPCS: 73502

== ENCOUNTER 2024-05-04 13:48 | Outpatient (CLI) | payer MEDICARE, SELFPAY ==
--- NOTE | 2024-05-04 14:38 | ECG_ITS ---
Test Date: 2024-05-04 14:59:30 Measurements Intervals [place] Rate: 67 P: 14 MA: 164 QRS: 11 QRSD: 158 T: 6 QT: 470 QTc: 497 Interpretive Statements SINUS RHYTHM WITH SINUS ARRHYTHMIA RIGHT BUNDLE BRANCH BLOCK INFERIOR INFARCT, AGE INDETERMINATE BASELINE ARTIFACT- I, II, III, AVR, AVL, AVF, V3-V6 ABNORMAL ECG No previous ECG available for comparison Electronically Signed On 05-04-2024 15:02:30 MUD MIXER OPERATOR by Michael Ryan D.O.
[2024-05-04 15:23] LABS: Basophils Percent Auto 0.4 % (0.2-1.2); Eosinophils Absolute Auto 0.1 K/mm3 (0-0.3); Hematocrit 43.7 % (42.0-52.0); Hemoglobin 14.8 g/dL (14.0-18.0); Immature Granulocyte Absolute 0.01 K/mm3 (0.00-0.031); Immature Granulocyte Percent A 0.2 % (0-0.5); Lymphocytes Absolute Auto 1.46 K/mm3 (0.9-3.2); Lymphocytes Percent Auto 31.1 % (18.3-44.2); Mean Corpuscular HGB Conc 33.9 g/dl (32-36); Mean Corpuscular Hemoglobin 31.4 pg (26-34); Mean Corpuscular Volume 92.6 fl (80-100); Monocytes Absolute Auto 0.4 K/mm3 (0.1-0.6); Monocytes Percent Auto 8.3 % (2.6-8.5); Neutrophils Absolute Auto 2.7 K/mm3 (1.3-6.7); Platelet Count Result 217 k/mm3 (150-375); Red Blood Count 4.72 M/mm3 (4.6-6.20); Red Cell Distribution Width 13.6 % (11.5-14.5); White Blood Count 4.7 K/mm3 (4.5-10.0)
[2024-05-04 15:37] LABS: Albumin Level 4.4 g/dL (3.5-5.1); Anion Gap 9 mmol/L (4-12); Blood Urea Nitrogen 26 mg/dL (9-20); Calcium 9.2 mg/dL (8.4-10.2); Carbon Dioxide 24 mmol/L (22-30); Chloride 104 mmol/L (98-107); Estimated Glomerular Filt Rate > 60; Glucose 140 mg/dL (65-110); Potassium 3.7 mmol/L (3.4-5.0); Sodium 137 mmol/L (137-145)
[2024-05-04 15:42] LABS: Hemoglobin A1C 5.4 % (<5.7)
[2024-05-04 16:04] LABS: Urine Cotinine NEGATIVE
== END 2024-05-04 13:49 | disposition home or self-care (01) ==
LOC: ANHSURGERY 13:54
PROVIDERS: PCP Family Medicine; Visit Provider Orthopaedic Surgery
DX: Z01.818 Encounter for other preprocedural examination (principal); M16.2 Bilateral osteoarthritis resulting from hip dysplasia; R94.31 Abnormal electrocardiogram [ECG] [EKG]
CPT/HCPCS: 80048; 80307; 82040; 83036; 85025; 87081; 87181; 93005

== ENCOUNTER 2024-05-20 01:27 | Day surgery (SDC) | payer MEDICARE, SELFPAY ==
[2024-05-04 14:08] VITALS: BP 113/58; PULSE 57; RESP 16; TEMP 36.8; O2SAT 98
--- NOTE | 2024-05-04 14:22 | PC.NURSE ---
Report to the Outpatient Waiting Room, entrance under the green pavilion located off [facility], at time __0600am on date _05/20/24 . Planned Procedure Time: _0730am .? Time changes happen often and if your time is changed the preop area will call you the afternoon before. - You and your visitor will be asked to self-screen and do not enter if you have any COVID symptoms. Please call surgeon if you need to reschedule. - A mask is optional within the hospital at this time. Patients may have clear liquids (water, carbonated beverages, clear teas, apple juice) until 3 hours prior to surgery with a maximum of 20 ounces. - No food from midnight until time of surgery and no smoking. This includes no chewing gum, candy or mints. Take only the following medications with a SIP of water on the morning of surgery: Metoprolol and Tylenol if needed DO NOT STOP ANY OF YOUR OTHER PRESCRIPTION MEDICATIONS PRIOR TO SURGERY EXCEPT THE FOLLOWING Medications to discontinue per physician Hold all NSAIDS, Aspirin, Supplements, priobiotics,Herbs and Vitamins for [address] Larsen Date to take last dose____05/12/24 Please no make-up, nail irish, hairspray, perfume, deodorant, or body powder the day of surgery.? No jewelry (including any body piercings) or valuables the day of surgery, leave them at home.? Please take a shower or bath the night before, or the morning of, surgery with an antibacterial soap.? Wear comfortable, loose fitting clothing.? Hibicleanse per Dr Sahni. - Jewelry must be removed prior to entering the operating room.? Rings and piercings that are not removed may be cut off. - The hospital will not accept responsibility for valuables.? - Please leave all valuables, including medications, at home the day of surgery. If you are going home after surgery, a licensed dump truck driver must drive you home.? - NO public transportation without another adult if you receive anesthesia. - We recommend that an adult stay with you for 24 hours following discharge. - We also recommend that you do not drive, make important decision, drink alcoholic beverages, or take any drugs that were not prescribed by your health care provider for at least 24 hours after your discharge time. Follow any additional instructions given to you from your surgeon. Telephone instructions given to __Patient and asked if any additional questions and then verbalized understanding. Patient advised to call surgeon office or pre surgery nurse liaison [phone] if any additional questions.
[2024-05-05 11:19] VITALS: BMI 29.4
--- NOTE | 2024-05-17 12:43 | PM.IMHP ---
H&P: HPI History of Present Illness Date/Time: 05/17/24 12:43 Chief Complaint: Left hip DJD Narrative: 73-year-old male who presents today for a left anterior total hip arthroplasty. He underwent right total hip arthroplasty in June of [address] Larsen, he had uneventful recovery and is very happy with his results. His left hip however he has severe osteoarthritis. He is having symptoms on a daily basis. At this point he feels he is ready to proceed with total hip arthroplasty on the left. Review of Systems Review of Systems: All systems reviewed & are unremarkable except as noted in HPI and below PMFSH Past Medical History Medical History Degenerative joint disease (DJD) of hip Hip arthritis Hyperlipidemia Hypertension Social History Social History (Updated 05/04/24 @ 12:55 by Deana Farah [facility]) Smoking status: Never smoker Additional smoking assessment comments: DENIES ANY FORM OF TOBACCO USE Alcohol intake: current Drinks per week: 2 Alcohol use details: Occasional use Substance use: never Substance use type: marijuana Other substance usage details: gummies to help sleep Current Housing: Decline to Answer Concerned About Future Housing: Decline to Answer Difficulty Paying Gas/Electric Bills: Decline to Answer Difficulty Paying for Meds: Decline to Answer Currently Unemployed: Decline to Answer Education: Decline to Answer Difficulty w/ Childcare or Family Care: Decline to Answer Living arrangements: with family Spiritual care concerns: No Meds Home Medications and Allergies Home Medications Medication Instructions Recorded Confirmed Type aspirin 81 mg tablet,delayed 81 mg PO DAILY 06/30/23 05/04/24 History release (Adult Low Dose Aspirin) brimonidine 0.2 %-timolol 0.5 % 1 drp EACH EYE QAM 06/30/23 05/04/24 History eye drops (Combigan) glucosamine sulf dipot 1 cap PO DAILY 06/30/23 05/04/24 History chlr,msm,chond 550 mg-C 30 mg-kijnal 1 mg capsule (Glucosamine Chondroitin) hydrochlorothiazide 25 mg tablet 25 mg PO DAILY 06/30/23 05/04/24 History lisinopril 40 mg tablet 40 mg PO DAILY 06/30/23 05/04/24 History jielmgtr-npoxooju-dpgxe acid 400 1 tablet PO DAILY 06/30/23 05/04/24 History mcg-vit K 20 mcg-lycop 300 mcg tablet rosuvastatin 10 mg tablet 10 mg PO DAILY 06/30/23 05/04/24 History metoprolol tartrate 25 mg tablet 12.5 mg PO BID 04/28/24 05/04/24 History mupirocin 2 % topical ointment 1 applic topical BID #22 grams 05/10/24 Rx Allergies Allergy/AdvReac Type Severity Reaction Status Date / Time Sulfa (Sulfonamide Allergy Intermediate Unknown Verified 05/04/24 14:04 Antibiotics) hydrocodone [From Vicodin] AdvReac Intermediate Nausea and Verified 05/04/24 14:04 Vomiting Exam Narrative: 73-year-old male alert pleasant. He is 6 ft tall 181 lb. BMI is 24.5. His left hip flexes 80?, internal rotation 15? short of neutral both cause lateral and groin pain in the hip. External rotation is 20?. Stinchfield maneuver causes him moderate thigh pain. He has good abduction strength in lateral position. 1+ dorsalis pedis pulse 2 +posterior tibial pulse. Normal sensation left lower extremity. No edema in lower extremity. Skin around the hip and groin crease are normal. Resp: Auscultation: clear to auscultation bilaterally Cardio: Rate: regular rate Rhythm: regular rhythm Assessment and Plan Assessment and plan (1) Primary osteoarthritis of left hip: Code(s): M16.12 - Unilateral primary osteoarthritis, left hip Status: Acute Assessment and Plan: 73-year-old male who has severe osteoarthritis left hip with severe symptoms on a daily basis. Again patient did very well with his right total hip approximately 1 year ago. He feels he is ready proceed with the left total hip at this point. Surgical procedure as well as the risks and complications were discussed in detail and all questions were answered and we will proceed. He will see his primary care doctor for pre-surgical clearance. Patient will stop his aspirin and any other ibuprofen products 1 week prior to surgery. Patient's hemoglobin is 14.8 and platelets were 217. Creatinine 0.80. His nasal swab was positive for oxacillin sensitive Staph aureus. He has been D colonizing.
[2024-05-20] VITALS (15 sets, daily range): BP systolic 101–157; BP diastolic 57–76; PULSE 51–68; RESP 11–20; TEMP 36.1–36.7; O2SAT 97–100
--- NOTE | ~2024-05-20 | XR_ITS ---
EXAMINATION: XR hip LT 1V w AP pelvis, XR surgery orthopedic DATE: 05/20/2024 11:06 INDICATION: Left total hip arthroplasty TECHNIQUE: 2 views left hip FINDINGS: There is a left total hip arthroplasty in expected position. Subcutaneous gas with soft ti ssue swelling are consistent with recent surgery. IMPRESSION: 1. Recent left total hip arthroplasty. Reviewed, dictated and finalized at location B. TENANCE PLANNER IMPRESSION: 1. Recent left total hip arthroplasty.
[2024-05-20] MEDS: ACETAMINOPHEN 500 MG TABLET 1000 MG PO (06:20)
[2024-05-20] MEDS: LACTATED RINGERS 1,000 ML 30 ML IV CONT ×2 (06:25→10:53)
[2024-05-20] MEDS: TRANEXAMIC ACID 1,000MG/ISO100 1,000 MG/100 ML BAG 200 MG IVPB (06:30)
[2024-05-20] MEDS: VANCOMYCIN 1,500 MG/NS 500 ML BAG 250 MG IVPB (06:35)
--- NOTE | 2024-05-20 07:07 | WPDANESEPPF ---
Anes - Initial Pre Proc Eval Procedure: Operation Date: 05/20/24 07:30 Proposed Procedures p Left Total Hip Arthroplasty Anterior Approach - Sebastian Larsen MD Date/Time: 05/20/24 07:07 Surgeon: Sebastian Larsen MD Pre Op Diagnosis: oa left hip Patient Data Age: 73 Gender: M Height: 1.83 m Weight: 98.5 kg Last Vital Signs Temp 98.2 F 05/04/24 14:08 Pulse 57 L 05/04/24 14:08 Resp 16 05/04/24 14:08 BP 113/58 L 05/04/24 14:08 Pulse Ox 98 05/04/24 14:08 O2 Del Method Room Air 05/04/24 14:08 Allergies Allergy/AdvReac Type Severity Reaction Status Date / Time Sulfa (Sulfonamide Allergy Intermediate Unknown Verified 05/04/24 14:04 Antibiotics) hydrocodone [From Vicodin] AdvReac Intermediate Nausea and Verified 05/04/24 14:04 Vomiting Home Medications Medication Instructions Recorded Confirmed Type aspirin 81 mg tablet,delayed 81 mg PO DAILY 06/30/23 05/04/24 History release (Adult Low Dose Aspirin) brimonidine 0.2 %-timolol 0.5 % 1 drp EACH EYE QAM 06/30/23 05/04/24 History eye drops (Combigan) glucosamine sulf dipot 1 cap PO DAILY 06/30/23 05/04/24 History chlr,msm,chond 550 mg-C 30 mg-kinjal 1 mg capsule (Glucosamine Chondroitin) hydrochlorothiazide 25 mg tablet 25 mg PO DAILY 06/30/23 05/04/24 History lisinopril 40 mg tablet 40 mg PO DAILY 06/30/23 05/04/24 History fhlkzddh-hjpxyppu-xphav acid 400 1 tablet PO DAILY 06/30/23 05/04/24 History mcg-vit K 20 mcg-lycop 300 mcg tablet rosuvastatin 10 mg tablet 10 mg PO DAILY 06/30/23 05/04/24 History metoprolol tartrate 25 mg tablet 12.5 mg PO BID 04/28/24 05/04/24 History mupirocin 2 % topical ointment 1 applic topical BID #22 grams 05/10/24 Rx Patient hx anesthesia problems: post op nausea/vomiting (mild w last GA. ) Family hx anesthesia problems: none Results Review: All pre-operative results and documents have been reviewed as part of the pre-operative evaluation. [facility] Past Medical History Medical History Degenerative joint disease (DJD) of hip Hip arthritis Hyperlipidemia Hypertension Social History Social History Smoking status: Never smoker Additional smoking assessment comments: DENIES ANY FORM OF TOBACCO USE Alcohol intake: current Drinks per week: 2 Alcohol use details: Occasional use Substance use: never Substance use type: marijuana Other substance usage details: gummies to help sleep Current Housing: Decline to Answer Concerned About Future Housing: Decline to Answer Difficulty Paying Gas/Electric Bills: Decline to Answer Difficulty Paying for Meds: Decline to Answer Currently Unemployed: Decline to Answer Education: Decline to Answer Difficulty w/ Childcare or Family Care: Decline to Answer Living arrangements: with family Spiritual care concerns: No Anes - Eval Final PreProcedure Day of Procedure 05/20/24 07:07 Patient weight: overweight Heart: regular rate and rhythm Lungs: clear to auscultation Airway: Mallampati scale class II Neurological: alert and oriented Last oral intake: >/= 8 hours ASA classification: III Emergent: no Anesthetic plan: proceed Anesthesia type and monitoring: general ETT and standard monitoring Results Review: All pre-operative results and documents have been reviewed as part of the pre-operative evaluation. HTN, hyperlipidemia, suspect MALINA no CPAP. Hx of AAA being monitored per pt. Informed Consent: The patient's anesthetic plan and its attendant risks and benefits were discussed with the patient/family/POA. Questions were solicited and answers provided to the satisfaction of the patient/family/POA.
--- NOTE | 2024-05-20 07:33 | WPDHPUPDATE1 ---
History and Physical Update Update Date/Time: 05/20/24 07:33 History and Physical has been reviewed, including an updated exam of the patient. There are NO changes in the patient's condition. Risks, benefits, and alternatives have been discussed and questions answered. Patient agrees to proceed with procedure.
[2024-05-20] MEDS: ceFAZolin 2 GM/D5W 50 ML 2 GM/50 ML BAG IVPB ×3 (07:36→23:14)
[2024-05-20] MEDS: SODIUM CHLORIDE 0.9% IV 38.7 ML, ROPivacaine HCL 1% 200 MG, KETOROLAC INJ (*BKC) 15 MG,... INFILTRATE (08:27)
[2024-05-20] MEDS: ceFAZolin SODIUM 1 GM VIAL 3 GM (08:27)
[2024-05-20] MEDS: ceFAZolin SODIUM 1 GM VIAL 2 GM IV PUSH (10:17)
[2024-05-20] MEDS: TRANEXAMIC ACID 1,000 MG/10 ML AMPUL 1000 MG IV PUSH (10:24)
[2024-05-20] MEDS: KETOROLAC 15 MG/ML VIAL (*BKC) IV PUSH ×3 (10:32→23:13)
--- NOTE | 2024-05-20 10:38 | P.OP_ITS ---
Procedure Note - Detailed Date of Procedure 05/20/24 Pre-op Diagnosis oa left hip Post-op Diagnosis Same Procedure Performed Left total hip replacement Surgeon Sebastian Larsen MD Tumbler Drier Operator Iveth Anesthesia General Description of Procedure Patient was brought to the operating room and general anesthesia was administered. The patient received 2 g of Ancef weight based vancomycin 1 g of TXA preoperatively. Padding was applied the feet boots applied SCDs applied and running during the procedure. [facility] and the left hip prepped draped usual fashion. A 10 cm longitudinal incision was made starting 3 cm lateral to the ASIS. Dissection was carried down to the fascia over the tensor fascia paulie which was longitudinally incised and interval between TFL and rectus femoris developed. Crossing branches of ascending lateral femoral circumflex vessels were ligated with suture divided. A retractor was placed anterior medial to the capsule. A the hip abducted internally rotated the gluteus minimus elevated off the lateral capsule. Inverted T capsulotomy performed femoral neck osteotomy made according to preoperative templating. Femoral head was removed. Acetabulum was a exposed labrum incised. Osteophytes removed from the anterior and anterior superior acetabulum. Posterior inferior osteophyte also removed. We medialized through the medial acetabular osteophyte with the 44 Reamer and reamed up to size 53 which gave peripheral reaming contact with the edges of the acetabulum at the equator anteriorly and posteriorly. A light reaming with the 54 Reamer was performed and the 54 pinnacle cup chosen. This was impacted and seated fully with a tight fit. This was placed to 40? of abduction and anteversion such that anterior shell was just under the anterior rim of the acetabulum. The posterior shell was about 4 mm proud of the posterior rim. Single screw was placed in the ilium and the 36 inner diameter liner fully seated without difficulty. The leg was externally rotated with the table hook and placing extended and the proximal femur exposed. The interval between piriformis and conjoined tendon was incised lateral to the osteotomy. We did not need to incise the interval farther medially. The canal was aspirated of marrow and we broached up to a size 9 which became very tight. We trialed and the 8.5 head gave us the appropriate offset and at length in the leg by about 5 or 6 mm from preop which was our preoperative plan to try to reduce his congenital leg length discrepancy by about 50%. Patient emphasized that his legs felt the same length and when he laid supine they appeared to be the same length however does have a significant pelvic obliquity on preoperative x-rays. Partially correcting his leg length discrepancy without over lengthening him was felt the best option. Appropriate soft tissue tension was noted and the hip was stable. Calcar planing was completed. We impacted the size 9 Actis standard offset stem. We trialed again with the 8.5 which was appropriate and the 8.5 cobalt chromium head impacted on the clean and dried trunnion after thorough aspiration of the wound. Hip reduced stability reconfirmed. Capsule was reapproximated with 2. Vicryl superiorly and local anesthetic cocktail injected into the periarticular soft tissues. Fascia closed with running 1. Vicryl drain in the subcu skin closed with 2 subcutaneous Vicryl and glue. EBL was estimated at 300 cc. He was given 125 back as Cell Saver packed cells. Two additional g of Ancef and 1 g TXA given time wound closure. There was very [place] through the very adequate to allow weight-bearing as tolerated after surgery. There were no complications he was transferred postop recovery room in stable condition. [facility] Billing Surgery - Charge Forward: Surgery Billing (Left total hip replacement)
--- NOTE | 2024-05-20 11:04 | PM.OP ---
Procedure Note - Brief Procedure Note - Brief Date of procedure: 05/20/24 oa left hip Procedure performed: Left anterior total hip arthroplasty Surgeon: BOYD Lacy Findings: 73-year-old male who underwent left anterior total hip arthroplasty on 05/20. I was involved in the procedure including positioning the patient on the OR table in 1st assisting through the time surgery. Total time spent was 3-1/2 hours
[2024-05-20] MEDS: fentaNYL CITRATE INJ (*CRX) 100 MCG/2 ML VIAL 25 MCG IV PUSH (11:44)
[2024-05-20] MEDS: oxyCODONE HCL (*CRX) 5 MG TAB IR PO ×3 (13:11→20:26)
[2024-05-20] MEDS: ACETAMINOPHEN 325 MG TABLET 650 MG PO ×3 (13:11→20:26)
--- NOTE | 2024-05-20 13:45 | P.CONIM_ITS ---
Assessment and Plan Assessment and plan (1) Primary osteoarthritis of left hip: Code(s): M16.12 - Unilateral primary osteoarthritis, left hip Status: Acute Assessment and Plan: Postoperative day 0 status post left total hip arthroplasty. Wound care, pain control, and DVT prophylaxis deferred to Dr. Larsen. Check baseline labs in a.m. (2) Postoperative nausea and vomiting: Code(s): R11.2 - Nausea with vomiting, unspecified; Z98.890 - Other specified postprocedural states Status: Acute Assessment and Plan: Mild and seems to be doing better. Zofran available as needed. (3) Hypertension: Code(s): I10 - Essential (primary) hypertension Status: Acute Assessment and Plan: Blood pressures were reviewed and they have been stable postoperatively. Continue metoprolol and lisinopril and monitor closely. (4) Hyperlipidemia: Code(s): E78.5 - Hyperlipidemia, unspecified Status: Acute Assessment and Plan: Continue rosuvastatin check LFTs. Plan Thank you for allowing us to participate in this patient's care. Please do not hesitate to contact us with any questions. HPI Date of Consult Consult date: 05/20/24 Requesting Physician: Sebastian Larsen MD Primary Care Provider: Rufus Delcid, MIsacc. Consult Narrative Narrative: This is a 73-year-old male with degenerative joint disease, hypertension, hyperlipidemia, mitral valve prolapse, and glaucoma whom the hospitalist service has been consulted for help managing his medical conditions postoperatively. He presented today for elective left total hip arthroplasty due to ongoing pain despite conservative outpatient treatment. His surgery was performed under general anesthesia with no immediate complications documented and an blood 300 mL with 150 mL returned as Cell Saver. Postoperatively he has had nausea and a couple of episodes of emesis but is feeling better. He has minimal pain. He denies fever, chills, sweats, chest pain, and shortness of breath. He also denies paresthesias, skin color, and temperature changes distal to the surgical site. Regarding his chronic medical conditions, he reports they are well controlled on medication. No history of venous thromboembolism. Review of Systems Review of Systems: 12 systems were reviewed and are negativ e except for as per HPI. [facility] Past Medical History Medical History (Updated 05/20/24 @ 21:43 by Payton Serna PA-C) Degenerative joint disease Glaucoma Hyperlipidemia Hypertension Mitral valve prolapse Surgical History Surgical History (Updated 05/20/24 @ 14:30 by Payton Serna PA-C) History of cataract extraction with lens replacement History of open reduction and internal fixation (ORIF) procedure repair of right forearm and mandible fractures History of total left hip arthroplasty (05/20/24) History of total right hip arthroplasty (07/14/23) History of umbilical hernia repair Family History Family History (Updated 05/20/24 @ 13:56 by Payton Serna PA-C) Other Family history non-contributory Social History Social History Social History: Surrogate medical decision maker: Shanti [place], spouse. Code status: Full code. Smoking status: Never smoker Alcohol intake: current Drinks per week: 2 Alcohol use details: Occasional alcohol use in moderation. Substance use: never Current Housing: Decline to Answer Concerned About Future Housing: Decline to Answer Difficulty Paying Gas/Electric Bills: Decline to Answer Difficulty Paying for Meds: Decline to Answer Currently Unemployed: Decline to Answer Education: Decline to Answer Difficulty w/ Childcare or Family Care: Decline to Answer Living arrangements: with family Additional living arrangements comments: Lives with spouse in [place]. Spiritual care concerns: No Meds Home Medications and Allergies Home Medications Medication Instructions Recorded Confirmed Type aspirin 81 mg tablet,delayed 81 mg PO DAILY 06/30/23 05/20/24 History release (Adult Low Dose Aspirin) brimonidine 0.2 %-timolol 0.5 % 1 drp EACH EYE QAM 06/30/23 05/20/24 History eye drops (Combigan) glucosamine sulf dipot 1 cap PO DAILY 06/30/23 05/20/24 History chlr,msm,chond 550 mg-C 30 mg-kinjal 1 mg capsule (Glucosamine Chondroitin) hydrochlorothiazide 25 mg tablet 25 mg PO DAILY 06/30/23 05/20/24 History lisinopril 40 mg tablet 40 mg PO DAILY 06/30/23 05/20/24 History yyxkexkf-tczmkzrp-cvgac acid 400 1 tablet PO DAILY 06/30/23 05/20/24 History mcg-vit K 20 mcg-lycop 300 mcg tablet rosuvastatin 10 mg tablet 10 mg PO DAILY 06/30/23 05/20/24 History metoprolol tartrate 25 mg tablet 12.5 mg PO BID 04/28/24 05/20/24 History Allergies Allergy/AdvReac Type Severity Reaction Status Date / Time Sulfa (Sulfonamide Allergy Intermediate Unknown Verified 05/20/24 07:15 Antibiotics) hydrocodone [From Vicodin] AdvReac Intermediate Nausea and Verified 05/20/24 07:15 Vomiting Vital Signs Vital Signs - 24 hr 05/20/24 06:08 05/20/24 10:53 05/20/24 11:00 Temperature 96.9 F L 97.0 F L Pulse Rate 56 L 56 L 56 L Respiratory Rate 18 14 14 Blood Pressure 129/68 101/57 L 110/69 Pulse Oximetry 97 100 100 Oxygen Delivery Room Air Simple Face Mask Simple Face Mask Oxygen Flow Rate 8 8 05/20/24 11:11 05/20/24 11:15 05/20/24 12:15 Temperature Pulse Rate 51 L 51 L Respiratory Rate 12 16 Blood Pressure 120/71 126/67 Pulse Oximetry 100 98 100 Oxygen Delivery Room Air Room Air Room Air Oxygen Flow Rate 05/20/24 12:25 05/20/24 11:30 05/20/24 11:45 Temperature Pulse Rate 52 L 52 L 63 Respiratory Rate 16 11 L 20 Blood Pressure 129/68 116/70 122/73 Pulse Oximetry 100 100 100 Oxygen Delivery Room Air Room Air Room Air Oxygen Flow Rate 05/20/24 12:00 05/20/24 13:00 05/20/24 13:19 Temperature 97.0 F L 97.0 F L 97.0 F L Pulse Rate 52 L 51 L 68 Respiratory Rate 16 18 18 Blood Pressure 132/68 135/76 130/75 Pulse Oximetry 100 99 98 Oxygen Delivery Room Air Oxygen Flow Rate Exam Narrative: General: Nontoxic-appearing gentleman sitting up in bed in no distress. He is on the phone. Weight: 96 kg. BMI: 28.7. HEENT: PERRL, EOMI. Sclera anicteric. Oral mucosa moist. Oropharynx clear. Neck: Supple. Respiratory: Lungs are clear to auscultation bilaterally. Cardiovascular: Regular rate and rhythm with S1-S2. Gastrointestinal: Abdomen is soft, nontender, and nondistended with positive bowel sounds. Skin: Warm and dry. No rash or lesions on limited exam. Extremities: No cyanosis, clubbing, or edema. Radial and pedal pulses intact. Musculoskeletal: Left hip dressing is clean, dry, and intact. Hemovac in place. He is neurovascularly intact distal to the surgical site. Neurological: Alert. Cranial nerves 2-12 grossly intact. No gross focal deficits to casual conversation. Psychiatric: Cooperative with appropriate mood and affect. Hospitalist MIPS Advance Care Plan I have confirmed that the patient's Advanced Care Plan is present, code status is documented, or surrogate decision maker is listed in patient medical record.: Yes Medication Reconciliation I have utilized all available resources to obtain, update and review the patients current medications (includes all prescriptions, OTC, herbals, cannabis, and nutritional supplements).: Yes
[2024-05-20] MEDS: ONDANSETRON INJ 4 MG/2 ML VIAL IV PUSH (15:47)
[2024-05-20] MEDS: SENNA/DOCUSATE SODIUM TABLET 2 TAB PO (17:02)
[2024-05-20] MEDS: VANCOMYCIN 1,000 MG/NS 250 ML 1,000 MG/250 ML BAG 250 MG IVPB (17:10)
[2024-05-20] MEDS: FAMOTIDINE 20 MG TABLET PO (20:26)
[2024-05-20] MEDS: METOPROLOL TARTRATE 12.5 MG TABLET PO (20:26)
[2024-05-21] MEDS: ACETAMINOPHEN 325 MG TABLET 650 MG PO ×3 (01:08→09:09)
[2024-05-21] MEDS: oxyCODONE HCL (*CRX) 5 MG TAB IR PO ×3 (01:08→09:13)
[2024-05-21 02:18] VITALS: BP 144/72; PULSE 72; RESP 16; TEMP 36.6; O2SAT 97
[2024-05-21] MEDS: VANCOMYCIN 1,000 MG/NS 250 ML 1,000 MG/250 ML BAG 250 MG IVPB (05:08)
[2024-05-21 05:36] VITALS: BP 120/73; PULSE 57; RESP 16; TEMP 36.4; O2SAT 98
[2024-05-21] MEDS: ceFAZolin 2 GM/D5W 50 ML 2 GM/50 ML BAG IVPB (06:14)
[2024-05-21 06:42] LABS: Basophils Percent Auto 0.1 % (0.2-1.2); Eosinophils Percent Auto 0.2 % (0-4.4); Hemoglobin 11.8 g/dL (14.0-18.0); Immature Granulocyte Absolute 0.04 K/mm3 (0.00-0.031); Immature Granulocyte Percent A 0.4 % (0-0.5); Lymphocytes Absolute Auto 1.17 K/mm3 (0.9-3.2); Lymphocytes Percent Auto 11.1 % (18.3-44.2); Mean Corpuscular HGB Conc 33.7 g/dl (32-36); Mean Corpuscular Hemoglobin 31.1 pg (26-34); Mean Corpuscular Volume 92.1 fl (80-100); Mean Platelet Volume 9.4 fl (7.4-10.4); Monocytes Absolute Auto 0.8 K/mm3 (0.1-0.6); Monocytes Percent Auto 7.5 % (2.6-8.5); Neutrophils Absolute Auto 8.6 K/mm3 (1.3-6.7); Neutrophils Percent Auto 80.7 % (45.5-73.1); Platelet Count Result 184 k/mm3 (150-375); Red Cell Distribution Width 13.8 % (11.5-14.5); White Blood Count 10.6 K/mm3 (4.5-10.0)
[2024-05-21 07:01] LABS: Alanine Aminotransferase 21 U/L (6-50); Albumin Level 3.3 g/dL (3.5-5.1); Alkaline Phosphatase 63 U/L (38-126); Anion Gap 3 mmol/L (4-12); Aspartate Amino Transferase 22 U/L (17-59); Bilirubin,Total 0.8 mg/dL (0.2-1.3); Blood Urea Nitrogen 27 mg/dL (9-20); Calcium 8.2 mg/dL (8.4-10.2); Carbon Dioxide 26 mmol/L (22-30); Chloride 107 mmol/L (98-107); Estimated CRCL calculation 77 ml/min; Estimated Glomerular Filt Rate > 60; Glucose 122 mg/dL (65-110); Sodium 136 mmol/L (137-145)
--- NOTE | 2024-05-21 07:27 | PM.PNORT ---
Subjective Subjective Date/Time Seen: 05/21/24 07:27 Interval history: Postop day 1 patient is alert. He has been afebrile vital signs are stable. Drain is out. Dressing is dry and intact. Neurovascularly he is intact. He is comfortable, pain is very well controlled. Patient was up walking yesterday with physical therapy and did well. Morning labs are noted. At this point patient will work with therapy again this morning and if he is feeling very well after that he will be discharged home. Objective Data Vital Signs Vital Signs: Vital Signs - 24 hr 05/20/24 10:53 05/20/24 11:00 05/20/24 11:11 Temperature 97.0 F L Pulse Rate 56 L 56 L Respiratory Rate 14 14 Blood Pressure 101/57 L 110/69 Pulse Oximetry 100 100 100 Oxygen Delivery Simple Face Mask Simple Face Mask Room Air Oxygen Flow Rate 8 8 05/20/24 11:15 05/20/24 12:15 05/20/24 12:25 Temperature Pulse Rate 51 L 51 L 52 L Respiratory Rate 12 16 16 Blood Pressure 120/71 126/67 129/68 Pulse Oximetry 98 100 100 Oxygen Delivery Room Air Room Air Room Air Oxygen Flow Rate 05/20/24 11:30 05/20/24 11:45 05/20/24 12:00 Temperature 97.0 F L Pulse Rate 52 L 63 52 L Respiratory Rate 11 L 20 16 Blood Pressure 116/70 122/73 132/68 Pulse Oximetry 100 100 100 Oxygen Delivery Room Air Room Air Room Air Oxygen Flow Rate 05/20/24 13:00 05/20/24 13:19 05/20/24 14:54 Temperature 97.0 F L 97.0 F L 98.1 F Pulse Rate 51 L 68 59 L Respiratory Rate 18 18 18 Blood Pressure 135/76 130/75 112/66 Pulse Oximetry 99 98 98 Oxygen Delivery Oxygen Flow Rate 05/20/24 15:00 05/20/24 20:26 05/20/24 21:36 Temperature 97.9 F Pulse Rate 60 66 Respiratory Rate 18 Blood Pressure 157/76 H Pulse Oximetry 97 Oxygen Delivery Room Air Oxygen Flow Rate 05/21/24 02:18 05/21/24 05:36 Temperature 97.8 F 97.5 F L Pulse Rate 72 57 L Respiratory Rate 16 16 Blood Pressure 144/72 H 120/73 Pulse Oximetry 97 98 Oxygen Delivery Oxygen Flow Rate Intake/Output Intake/Output: Intake & Output 05/18/24 05/19/24 05/20/24 05/21/24 23:59 23:59 23:59 23:59 Intake Total 1280 350 Output Total 50 Balance 1280 300 Meds/Results Medications: Active Medications Generic Name Dose Route Start Last Admin Trade Name Freq PRN Reason Stop Dose Admin Acetaminophen 650 mg 05/20/24 13:00 05/21/24 04:28 Acetaminophen 325 Mg Tablet PO 650 mg Q4H ASHLEY Administration Apixaban 2.5 mg 05/21/24 09:00 Apixaban 2.5 Mg Tablet PO 06/24/24 21:01 Q12HR COUNTS INCLUDE 234 BEDS AT THE [facility] Brimonidine Tartrate 1 drop 05/21/24 09:00 Brimonidine Tartrate 0.2% Op Soln 5 Ml Btl EACH EYE 06/20/24 08:59 QAM ASHLEY Cephalexin HCl 500 mg 05/21/24 12:00 Cephalexin 500 Mg Capsule PO Q6HR COUNTS INCLUDE 234 BEDS AT THE [facility] Famotidine 20 mg 05/20/24 21:00 05/20/24 20:26 Famotidine 20 Mg Tablet PO 20 mg Q12HR ASHLEY Administration Hydrochlorothiazide 25 mg 05/21/24 09:00 Hydrochlorothiazide 25 Mg Tablet PO DAILY COUNTS INCLUDE 234 BEDS AT THE [facility] Hydromorphone HCl 0.5 mg 05/20/24 12:33 Hydromorphone Hcl Inj (*Crx) 1 Mg/Ml Syr IV PUSH Q2H PRN Breakthrough Pain Rated 4-6 or NPO Cefazolin Sodium 2 gm in 50 mls @ 100 mls/hr 05/20/24 15:00 05/21/24 06:14 Ancef 2 Gm/D5w 50 Ml IVPB 05/21/24 07:29 100 mls/hr Q8H COUNTS INCLUDE 234 BEDS AT THE [facility] Administration Meloxicam 7.5 mg 05/21/24 08:00 Meloxicam 7.5 Mg Tablet PO DAILY@0800 COUNTS INCLUDE 234 BEDS AT THE [facility] Metoprolol Tartrate 12.5 mg 05/20/24 21:00 05/20/24 20:26 Metoprolol Tartrate 12.5 Mg Tablet PO 12.5 mg Q12HR ASHLEY Administration Naloxone HCl 0.1 mg 05/20/24 12:33 Naloxone Hcl 0.4 Mg/Ml Vial IV PUSH Q2M PRN Opiate Reversal Ondansetron HCl 4 mg 05/20/24 12:33 05/20/24 15:47 Ondansetron Inj 4 Mg/2 Ml Vial IV PUSH 4 mg Q4H PRN Administration Nausea And Vomiting Oxycodone HCl 5 mg 05/20/24 13:00 05/21/24 04:28 Oxycodone Hcl (*Crx) 5 Mg Tab Ir PO 5 mg Q4H ASHLEY Administration Oxycodone HCl 5 mg 05/20/24 12:33 Oxycodone Hcl (*Crx) 5 Mg Tab Ir PO Q4H PRN Pain Rated 7-10 Polyethylene Glycol 17 gm 05/21/24 09:00 Polyethylene Glycol 3350 17 Gm Powd.Pack PO QAM COUNTS INCLUDE 234 BEDS AT THE [facility] Rosuvastatin Calcium 10 mg 05/21/24 09:00 Rosuvastatin 10 Mg Tablet PO DAILY COUNTS INCLUDE 234 BEDS AT THE [facility] Senna/Docusate Sodium 2 tab 05/20/24 17:00 05/20/24 17:02 Senna/Docusate Sodium Tablet PO 2 tab BID COUNTS INCLUDE 234 BEDS AT THE [facility] Administration Timolol Maleate 1 drop 05/21/24 09:00 Timolol Maleate 0.5% Op Soln 5 Ml Bottle E[facility] Results: ITS Impressions Hip/Pelvis X-Ray 05/20/24 11:19 IMPRESSION: 1. Recent left total hip arthroplasty. Intraoperative X-Ray 05/20/24 11:19 IMPRESSION: 1. Recent left total hip arthroplasty. Labs Labs: Laboratory Results - last 24 hr 05/21/24 06:32 WBC 10.6 H RBC 3.80 L Hgb 11.8 L D Hct 35.0 L MCV 92.1 MCH 31.1 MCHC 33.7 RDW 13.8 Plt Count 184 MPV 9.4 Immature Gran % (Auto) 0.4 Neut % (Auto) 80.7 H Lymph % (Auto) 11.1 L [place] % (Auto) 7.5 Eos % (Auto) 0.2 Baso % (Auto) 0.1 L Lymph # (Auto) 1.17 [place] # (Auto) 0.8 H Eos # (Auto) 0.0 Baso # (Auto) 0.0 Abs Immat Gran (auto) 0.04 H Absolute Neuts (auto) 8.6 H Absolute Nucleated RBC 0.000 Nucleated RBC % 0.0 Sodium 136 L Potassium 4.0 Chloride 107 Carbon Dioxide 26 Anion Gap 3 L BUN 27 H Creatinine 0.80 Estim Creat Clear Calc 77 Estimated GFR > 60 Glucose 122 H Calcium 8.2 L Magnesium 2.0 Total Bilirubin 0.8 Direct Bilirubin 0.0 AST 22 ALT 21 Alkaline Phosphatase 63 Total Protein 6.0 L Albumin 3.3 L
--- NOTE | 2024-05-21 07:31 | P.DS_ITS ---
DS: Admitting Diagnosis Discharge Date 05/21 Admitting Diagnosis Left hip DJD DS: Discharge Diagnosis Discharge Diagnosis (1) Degenerative joint disease (DJD) of hip: Code(s): M16.9 - Osteoarthritis of hip, unspecified Status: Acute DS: Summary Hospital Course Hospital Course: 73-year-old male who underwent left anterior total hip arthroplasty on 05/20. Underwent the procedure without complications. Postoperatively he has been afebrile vital signs are stable. He is weight-bearing as tolerated. He was up walking with physical therapy the day of surgery was very comfortable. Pain is very well controlled with scheduled Tylenol every 4 hours as well as oxycodone 5 mg. He is on Eliquis for DVT prophylaxis. He is on meloxicam 7.5 mg daily for heterotopic bone prophylaxis. Patient be discharged home on 05/21. Postop day 1 patient was alert and comfortable. Dressing dry and intact. Drain is out. Minimal swelling in the proximal thigh. Patient be also discharged home with a 10 day course of Keflex due to his nasal swab results of SERGO. He will also be given Senokot MiraLax for constipation. He was advised to keep leg elevated home to prevent swelling. If he has any questions or concerns he call the office otherwise we will see him at his appointments Time Spent with Patient Time attestation: Total time spent providing and/or coordinating discharge services: DS: Data Data Completed and Pending Labs on day of discharge: Labs from last 24 hours 05/21/24 06:32 WBC 10.6 H RBC 3.80 L Hgb 11.8 L D Hct 35.0 L MCV 92.1 MCH 31.1 MCHC 33.7 RDW 13.8 Plt Count 184 MPV 9.4 Immature Gran % (Auto) 0.4 Neut % (Auto) 80.7 H Lymph % (Auto) 11.1 L [place] % (Auto) 7.5 Eos % (Auto) 0.2 Baso % (Auto) 0.1 L Lymph # (Auto) 1.17 [place] # (Auto) 0.8 H Eos # (Auto) 0.0 Baso # (Auto) 0.0 Abs Immat Gran (auto) 0.04 H Absolute Neuts (auto) 8.6 H Absolute Nucleated RBC 0.000 Nucleated RBC % 0.0 Sodium 136 L Potassium 4.0 Chloride 107 Carbon Dioxide 26 Anion Gap 3 L BUN 27 H Creatinine 0.80 Estim Creat Clear Calc 77 Estimated GFR > 60 Glucose 122 H Calcium 8.2 L Magnesium 2.0 Total Bilirubin 0.8 Direct Bilirubin 0.0 AST 22 ALT 21 Alkaline Phosphatase 63 Total Protein 6.0 L Albumin 3.3 L Discharge Plan Discharge Patient Disposition: Home, Self-Care Discharge Instructions: SEBASTIAN LARSEN M.D [facility] [address] [address] [address] [place] [address] POST-OPERATIVE DISCHARGE INSTRUCTIONS ANTERIOR TOTAL HIP ARTHROPLASTY 1. Move toes/feet up and down every hour while awake. 2. Be up walking every hour while awake. 3. Use walker maintenance service technician if instructed to use walker maintenance service technician.When you are allowed to use the cane, use the cane in the opposite hand. 4. When resting, do not rest in the chair. Rather, lie on your back, with back flat, and the leg elevated above heart to minimize swelling. You may put a pillow under your head. Do not rest in a chair. Resting in the chair results in swelling in the leg. Significant swelling could indicate a blood clot and if this occurs, call the office (or go to the ER) to have a venous ultrasound performed. Its ok to sit in the chair to eat and use the toilet and to receive a guest but sitting in a chair will cause your leg to swell. so try to minimize sitting in a chair. 5. Wound Care: Apply a folded 4x4 sponge to incision and hold with crossing strips of 1 inch Transpore tape. 6. May shower. Remove dressing before shower and reapply dressing after shower. Stand Alone Forms: General Discharge Instructions Follow-up/Referrals: Sebastian Larsen MD [Physician] - Keep Reg. Scheduled Appt. Discharge Medications: New acetaminophen 325 mg Tablet 650 mg PO Q4H Qty: 90 0RF Eliquis 2.5 mg Tablet 2.5 mg PO Q12HR Qty: 70 0RF polyethylene glycol 3350 [Miralax] 17 gram Powder In Packet 17 g PO QAM Qty: 30 0RF sennosides-docusate sodium [Senokot-S] 8.6-50 mg Tablet 2 tab PO BID Qty: 60 0RF cephalexin 500 mg Capsule 500 mg PO Q6HR Qty: 40 0RF oxycodone 5 mg Tablet 5 mg PO Q4H PRN (Reason: Pain Rated 7-10) Qty: 40 0RF Continued metoprolol tartrate 25 mg tablet 12.5 mg PO BID hydrochlorothiazide 25 mg tablet 25 mg PO DAILY lisinopril 40 mg tablet 40 mg PO DAILY rosuvastatin 10 mg tablet 10 mg PO DAILY fbwskozu-coy-ybtsv-vit K-lycop 400-20-300 mcg Tablet 1 tablet PO DAILY brimonidine-timolol [Combigan] 0.2-0.5 % drops 1 drp EACH EYE QAM Discontinued aspirin [Adult Low Dose Aspirin] 81 mg Tablet,Delayed Release (Dr/Ec) 81 mg PO DAILY Glucosamine Chondroitin 550-30-1 mg Capsule 1 cap PO DAILY
[2024-05-21 08:00] VITALS: O2SAT 98
[2024-05-21] MEDS: FAMOTIDINE 20 MG TABLET PO (09:09)
[2024-05-21] MEDS: hydroCHLOROthiazide 25 MG TABLET PO (09:09)
[2024-05-21] MEDS: ROSUVASTATIN 10 MG TABLET PO (09:09)
[2024-05-21] MEDS: MELOXICAM 7.5 MG TABLET PO (09:09)
[2024-05-21] MEDS: BRIMONIDINE TARTRATE 0.2% OP SOLN 5 ML BTL 1 DROP EACH EYE (09:09)
[2024-05-21] MEDS: SENNA/DOCUSATE SODIUM TABLET 2 TAB PO (09:09)
[2024-05-21] MEDS: APIXABAN 2.5 MG TABLET PO (09:09)
[2024-05-21] MEDS: TIMOLOL MALEATE 0.5% OP SOLN 5 ML BOTTLE 1 DROP EACH EYE (09:10)
[2024-05-21 09:11] VITALS: PULSE 70
[2024-05-21] MEDS: METOPROLOL TARTRATE 12.5 MG TABLET PO (09:11)
[2024-05-21 10:07] VITALS: O2SAT 95
--- NOTE | 2024-05-21 10:08 | PM.IMPN ---
Progress Note: A&P Assessment and Plan (1) Primary osteoarthritis of left hip: Code(s): M16.12 - Unilateral primary osteoarthritis, left hip Status: Acute Assessment and Plan: Postoperative day 1 status post left total hip arthroplasty. Wound care, pain control, and DVT prophylaxis deferred to Dr. Larsen. (2) Postoperative nausea and vomiting: Code(s): R11.2 - Nausea with vomiting, unspecified; Z98.890 - Other specified postprocedural states Status: Acute Assessment and Plan: Mild and seems to be doing better. Zofran available as needed. (3) Hypertension: Code(s): I10 - Essential (primary) hypertension Status: Acute Assessment and Plan: Blood pressures were reviewed and they have been stable postoperatively. Continue metoprolol and lisinopril and monitor closely. (4) Hyperlipidemia: Code(s): E78.5 - Hyperlipidemia, unspecified Status: Acute Assessment and Plan: Continue rosuvastatin check LFTs. Plan Thank you for allowing us to participate in this patient's care. Please do not hesitate to contact us with any questions. Subjective Date/time seen: 05/21/24 10:08 Interval history: Patient was consulted hospitalist for managing chronic conditions. I was not able to see the patient regarding discharge. No acute events overnight. Review of Systems Review of Systems: n/a Exam Narrative: n/a Objective Data Vital Signs Vital Signs: Vital Signs - 24 hr 05/20/24 10:53 05/20/24 11:00 05/20/24 11:11 Temperature 97.0 F L Pulse Rate 56 L 56 L Respiratory Rate 14 14 Blood Pressure 101/57 L 110/69 Pulse Oximetry 100 100 100 Oxygen Delivery Simple Face Mask Simple Face Mask Room Air Oxygen Flow Rate 8 8 05/20/24 11:15 05/20/24 12:15 05/20/24 12:25 Temperature Pulse Rate 51 L 51 L 52 L Respiratory Rate 12 16 16 Blood Pressure 120/71 126/67 129/68 Pulse Oximetry 98 100 100 Oxygen Delivery Room Air Room Air Room Air Oxygen Flow Rate 05/20/24 11:30 05/20/24 11:45 05/20/24 12:00 Temperature 97.0 F L Pulse Rate 52 L 63 52 L Respiratory Rate 11 L 20 16 Blood Pressure 116/70 122/73 132/68 Pulse Oximetry 100 100 100 Oxygen Delivery Room Air Room Air Room Air Oxygen Flow Rate 05/20/24 13:00 05/20/24 13:19 05/20/24 14:54 Temperature 97.0 F L 97.0 F L 98.1 F Pulse Rate 51 L 68 59 L Respiratory Rate 18 18 18 Blood Pressure 135/76 130/75 112/66 Pulse Oximetry 99 98 98 Oxygen Delivery Oxygen Flow Rate 05/20/24 15:00 05/20/24 20:26 05/20/24 21:36 Temperature 97.9 F Pulse Rate 60 66 Respiratory Rate 18 Blood Pressure 157/76 H Pulse Oximetry 97 Oxygen Delivery Room Air Oxygen Flow Rate 05/21/24 02:18 05/21/24 05:36 05/21/24 08:00 Temperature 97.8 F 97.5 F L Pulse Rate 72 57 L Respiratory Rate 16 16 Blood Pressure 144/72 H 120/73 Pulse Oximetry 97 98 98 Oxygen Delivery Room Air Oxygen Flow Rate 05/21/24 09:11 05/21/24 10:07 Temperature Pulse Rate 70 Respiratory Rate Blood Pressure Pulse Oximetry 95 Oxygen Delivery Room Air Oxygen Flow Rate Intake/Output Intake/Output: Intake & Output 05/18/24 05/19/24 05/20/24 05/21/24 23:59 23:59 23:59 23:59 Intake Total 1280 1090 Output Total 50 Balance 1280 1040 Meds/Results Medications: Active Medications Generic Name Dose Route Start Last Admin Trade Name Freq PRN Reason Stop Dose Admin Acetaminophen 650 mg 05/20/24 13:00 05/21/24 09:09 Acetaminophen 325 Mg Tablet PO 650 mg Q4H ASHLEY Administration Apixaban 2.5 mg 05/21/24 09:00 05/21/24 09:09 Apixaban 2.5 Mg Tablet PO 06/24/24 21:01 2.5 mg Q12HR ASHLEY Administration Brimonidine Tartrate 1 drop 05/21/24 09:00 05/21/24 09:09 Brimonidine Tartrate 0.2% Op Soln 5 Ml Btl EACH EYE 06/20/24 08:59 1 drop QAM ASHLEY Administration Cephalexin HCl 500 mg 05/21/24 12:00 Cephalexin 500 Mg Capsule PO Q6HR ASHLEY Famotidine 20 mg 05/20/24 21:00 05/21/24 09:09 Famotidine 20 Mg Tablet PO 20 mg Q12HR ASHLEY Administration Hydrochlorothiazide 25 mg 05/21/24 09:00 05/21/24 09:09 Hydrochlorothiazide 25 Mg Tablet PO 25 mg DAILY ASHLEY Administration Hydromorphone HCl 0.5 mg 05/20/24 12:33 Hydromorphone Hcl Inj (*Crx) 1 Mg/Ml Syr IV PUSH Q2H PRN Breakthrough Pain Rated 4-6 or NPO Meloxicam 7.5 mg 05/21/24 08:00 05/21/24 09:09 Meloxicam 7.5 Mg Tablet PO 7.5 mg DAILY@0800 ASHLEY Administration Metoprolol Tartrate 12.5 mg 05/20/24 21:00 05/21/24 09:11 Metoprolol Tartrate 12.5 Mg Tablet PO 12.5 mg Q12HR ASHLEY Administration Naloxone HCl 0.1 mg 05/20/24 12:33 Naloxone Hcl 0.4 Mg/Ml Vial IV PUSH Q2M PRN Opiate Reversal Ondansetron HCl 4 mg 05/20/24 12:33 05/20/24 15:47 Ondansetron Inj 4 Mg/2 Ml Vial IV PUSH 4 mg Q4H PRN Administration Nausea And Vomiting Oxycodone HCl 5 mg 05/20/24 13:00 05/21/24 09:13 Oxycodone Hcl (*Crx) 5 Mg Tab Ir PO 5 mg Q4H ASHLEY Administration Oxycodone HCl 5 mg 05/20/24 12:33 Oxycodone Hcl (*Crx) 5 Mg Tab Ir PO Q4H PRN Pain Rated 7-10 Polyethylene Glycol 17 gm 05/21/24 09:00 Polyethylene Glycol 3350 17 Gm Powd.Pack PO QAM [facility] Rosuvastatin Calcium 10 mg 05/21/24 09:00 05/21/24 09:09 Rosuvastatin 10 Mg Tablet PO 10 mg DAILY ASHLEY Administration Senna/Docusate Sodium 2 tab 05/20/24 17:00 05/21/24 09:09 Senna/Docusate Sodium Tablet PO 2 tab BID ASHLEY Administration Timolol Maleate 1 drop 05/21/24 09:00 05/21/24 09:10 Timolol Maleate 0.5% Op Soln 5 Ml Bottle EACH EYE 1 drop QAM [facility] Administration Radiology Results: ITS Impressions Hip/Pelvis X-Ray 05/20/24 11:19 IMPRESSION: 1. Recent left total hip arthroplasty. Intraoperative X-Ray 05/20/24 11:19 IMPRESSION: 1. Recent left total hip arthroplasty. Labs Labs: Laboratory Results - last 24 hr 05/21/24 06:32 WBC 10.6 H RBC 3.80 L Hgb 11.8 L D Hct 35.0 L MCV 92.1 MCH 31.1 MCHC 33.7 RDW 13.8 Plt Count 184 MPV 9.4 Immature Gran % (Auto) 0.4 Neut % (Auto) 80.7 H Lymph % (Auto) 11.1 L [place] % (Auto) 7.5 Eos % (Auto) 0.2 Baso % (Auto) 0.1 L Lymph # (Auto) 1.17 [place] # (Auto) 0.8 H Eos # (Auto) 0.0 Baso # (Auto) 0.0 Abs Immat Gran (auto) 0.04 H Absolute Neuts (auto) 8.6 H Absolute Nucleated RBC 0.000 Nucleated RBC % 0.0 Sodium 136 L Potassium 4.0 Chloride 107 Carbon Dioxide 26 Anion Gap 3 L BUN 27 H Creatinine 0.80 Estim Creat Clear Calc 77 Estimated GFR > 60 Glucose 122 H Calcium 8.2 L Magnesium 2.0 Total Bilirubin 0.8 Direct Bilirubin 0.0 AST 22 ALT 21 Alkaline Phosphatase 63 Total Protein 6.0 L Albumin 3.3 L Hospitalist MIPS Advance Care Plan I have confirmed that the patient's Advanced Care Plan is present, code status is documented, or surrogate decision maker is listed in patient medical record.: Yes Medication Reconciliation I have utilized all available resources to obtain, update and review the patients current medications (includes all prescriptions, OTC, herbals, cannabis, and nutritional supplements).: Yes
--- NOTE | 2024-05-21 13:57 | WPDANESPN ---
Anes - Prog Note Post-Op Date/Time: 05/21/24 13:57 Cardiovascular status: normal Respiratory status: normal Airway patency: baseline Mental status: baseline Post-Op hydration status: normal Vital Signs: Last Vital Signs Temp 97.5 F L 05/21/24 05:36 Pulse 70 05/21/24 09:11 Resp 16 05/21/24 05:36 BP 120/73 05/21/24 05:36 Pulse Ox 95 05/21/24 10:07 O2 Del Method Room Air 05/21/24 10:07 O2 Flow Rate 8 05/20/24 11:00 Pain Score (VAS): 0/10 I/O: Intake & Output 05/20/24 05/21/24 05/21/24 23:59 07:59 15:59 Intake Total 830 350 740 Output Total 50 Balance 830 300 740 Laboratory Tests 05/21/24 06:32 05/21/24 06:32 05/21/24 06:32 WBC 10.6 H RBC 3.80 L Hgb 11.8 L D Hct 35.0 L MCV 92.1 MCH 31.1 MCHC 33.7 RDW 13.8 Plt Count 184 MPV 9.4 Immature Gran % (Auto) 0.4 Neut % (Auto) 80.7 H Lymph % (Auto) 11.1 L [place] % (Auto) 7.5 Eos % (Auto) 0.2 Baso % (Auto) 0.1 L Lymph # (Auto) 1.17 [place] # (Auto) 0.8 H Eos # (Auto) 0.0 Baso # (Auto) 0.0 Abs Immat Gran (auto) 0.04 H Absolute Neuts (auto) 8.6 H Absolute Nucleated RBC 0.000 Nucleated RBC % 0.0 Sodium 136 L Potassium 4.0 Chloride 107 Carbon Dioxide 26 Anion Gap 3 L BUN 27 H Creatinine 0.80 Estim Creat Clear Calc 77 Estimated GFR > 60 Glucose 122 H Calcium 8.2 L Magnesium 2.0 Total Bilirubin 0.8 Direct Bilirubin 0.0 AST 22 ALT 21 Alkaline Phosphatase 63 Total Protein 6.0 L Albumin 3.3 L Post-procedural complaints: none Patient Feedback: Patient satisfied with anesthetic care.
== END 2024-05-21 11:10 | disposition home or self-care (01) ==
LOC: ANHSURGERY 05:55 → ANH3MEDSUR 12:47
PROVIDERS: Physician Assistant; Physician Assistant Surgical; PCP Family Medicine; Visit Provider Orthopaedic Surgery
PROC: (CPT 27130; principal; 2024-05-20 07:30)
DX: M16.12 Unilateral primary osteoarthritis, left hip (principal); M25.752 Osteophyte, left hip; E78.5 Hyperlipidemia, unspecified; I10 Essential (primary) hypertension; F12.90 Cannabis use, unspecified, uncomplicated; Z79.82 Long term (current) use of aspirin; Z98.890 Other specified postprocedural states; Z96.641 Presence of right artificial hip joint; Z86.79 Personal history of other diseases of the circulatory system
CPT/HCPCS: 27130; 36415; 73501; 80048; 80076; 83735; 85025; 86850; 86900; 86901; 97110; 97161; 97165; 97530; 97535; 99199; A9270; C1776; J0171; J0690; J1100; J1885; J2003; J2250; J2270; J2405; J2704; J2795; J3010; J3370; J7120